=== PATIENT | female | born 1950 | race Caucasian/White ===

== ENCOUNTER 2023-02-05 19:07 | Outpatient (CLI) | payer MEDICARE, SELFPAY | END 2023-02-05 19:08 | disposition home or self-care (01) | PROVIDERS: PCP Emergency Medicine; Visit Provider Emergency Medicine | DX: Z00.00 Encounter for general adult medical examination without abnormal findings (principal); I10 Essential (primary) hypertension; E78.5 Hyperlipidemia, unspecified; D50.9 Iron deficiency anemia, unspecified | CPT/HCPCS: 80053; 82728 ==

== ENCOUNTER 2023-05-08 14:23 | Outpatient (CLI) | payer MEDICARE, SELFPAY | END 2023-05-08 14:24 | disposition home or self-care (01) | LOC: NFLDREF 05-10 10:06 | PROVIDERS: PCP Emergency Medicine; Referring Provider Emergency Medicine; Visit Provider Emergency Medicine | DX: Z00.00 Encounter for general adult medical examination without abnormal findings (principal); E11.9 Type 2 diabetes mellitus without complications; M85.9 Disorder of bone density and structure, unspecified; D50.9 Iron deficiency anemia, unspecified; E78.2 Mixed hyperlipidemia; I10 Essential (primary) hypertension | CPT/HCPCS: 80061; 82043; 82570; 82728 ==

== ENCOUNTER 2023-07-02 12:33 | Outpatient (CLI) | payer MEDICARE, SELFPAY ==
--- NOTE | 2023-07-02 13:00 | CRLHL7_ITS ---
For Patients: As a result of the Century Cures Act, medical imaging exams and procedure reports are released immediately into your electronic medical record. You may view this report before your referring provider. If you have questions, please contact your health care provider. DXA BONE MINERAL DENSITY STUDY Reason for exam: Low bone density femoral neck 2009. Current height (in): 64. Weight (lb): 145. Menopause age: 41. Ethnicity: White. 1. Have you had a previous hip or vertebral fracture? Yes. 2. Have you had any fractures during your adult life which did not result from significant trauma (e.g., auto accident)? Yes. 3. Did either of your parents have a hip fracture? Yes. 4. Do you smoke? No. 5. Have you ever taken Glucocorticoids? No. 6. Do you have rheumatoid arthritis? Yes. 7. Do you have secondary osteoporosis? No. 8. Do you drink 3 or more alcoholic drinks per day? No. 9. Are you being treated for osteoporosis? No. 10. Have you ever taken any of the following medications: Actonel, Evista, Fosamax, Miacalcin, Reclast, Boniva, Forteo, HRT (i.e., estrogen/hormone therapy), Protelos, Prolia, Vitamin D, Calcium, other ??? please specify. ANSWER: Yes, vitamin D and calcium. 11. Do you have any of the following medical conditions: Anorexia or bulimia, asthma or emphysema, end stage renal disease, hyperparathyroidism, any seizure disorders, cancer, inflammatory bowel diseases, hysterectomy, other ??? please specify. ANSWER: Yes, hysterectomy. 12. What was your maximum height (inches)? 64. 13. Do you perform weight bearing exercise regularly? No. 14. Do you regularly consume dairy products? No. 15. Do you drink caffeinated beverages? Yes. If female: 16. At what age did your period start? 16. 17. Are you premenopausal? No. 18. How many full-term pregnancies have you had? 3. 19. Have you ever missed your period for more than 6 months in a row (not including or menopause)? No. TECHNIQUE: Bone mineral density study was performed using the [employer]. FINDINGS: The results of the study expressed as bone mineral density (BMD) are as follows: Lumbar spine L3 to L4: BMD: 1.069 g/cm2. T-score: -0.3. Z-score: 2.1 Neck Left: BMD: 0.576 g/cm2. T-score: -2.5. Z-score: -0.5 Total Left: BMD: 0.789 g/cm2. T-score: -1.3. Z-score: 0.4 IMPRESSION: Osteoporosis. Dimas Loaiza M.D. Diagnostic Radiologist [email or web address] REJI/lucian del vallej/Dictated by: Dimas Loaiza MD @ 07/03/2023 6:16:00 AM (Electronically Signed)
== END 2023-07-02 12:34 | disposition home or self-care (01) ==
LOC: RAD 12:34
PROVIDERS: PCP Emergency Medicine; Visit Provider Emergency Medicine
DX: M85.9 Disorder of bone density and structure, unspecified (principal); M81.0 Age-related osteoporosis without current pathological fracture
CPT/HCPCS: 77080

== ENCOUNTER 2023-08-29 16:07 | Outpatient (CLI) | payer MEDICARE, SELFPAY | END 2023-08-29 16:08 | disposition home or self-care (01) | PROVIDERS: PCP Emergency Medicine; Visit Provider Emergency Medicine | DX: E78.5 Hyperlipidemia, unspecified (principal); I10 Essential (primary) hypertension; E11.9 Type 2 diabetes mellitus without complications; D50.9 Iron deficiency anemia, unspecified; M81.0 Age-related osteoporosis without current pathological fracture | CPT/HCPCS: 80053; 82306; 82728; 84100 ==

== ENCOUNTER 2024-09-11 07:50 | Day surgery (SDC) | payer MEDICARE, SELFPAY ==
[2024-09-11] VITALS (15 sets, daily range): BP systolic 130–228; BP diastolic 57–101; PULSE 68–83; RESP 11–20; TEMP 36.2–36.7; O2SAT 94–100; BMI 25.0
--- OUTSIDE RECORDS SUMMARY | 2024-09-11 07:55 | XMS_ITS | Encounter Summary ---
Author Organization [facility] Address [address] [place] [address] Care Team Providers Care Certified Master Locksmith Name Role Phone Doris Petit MD Primary Care Provider Unav ailable Doris Petti MD Unavailable UnavailRosalva Monroy PA-C Unavailable +[phone] Doris Petit MD Unavailable Unavailabl Rosalva Kimball PA-C Unavailable + Rosalva Doherty PA-C Primary Care Provid er + Edwige Chcako MD Primary Care Provider + Edwige Chacko MD Unavailable + 03 Rosalva Doherty PA-C Unavailable + Edwige Chacko MD Unavailable + 03 Rosalva oDherty PA-C Unavailable + Rosalva Doherty PA-C Primary Care Provid er Mary Laughlin PA-C Primary Care Pro vider Homa Marcum MD Unavailable [phone] Rosavla Doherty PA-C Unavailable + Rosalva Doherty PA-C Primary Care Provid er Homa Marcum MD Unavailable Rosalva Doherty PA-C Unavailable [phone] Encounter Details Date Type Department Care Team (Late st Contact Info) Description 06/15/2011 MyC Medical Advice [facility] [address] [place] [address] [phone] Od[facility] Social History Tobacco Use Types Packs/Day Years Used Date Smoking Tobacco: Never Alcohol Use Standard Drinks/Week Comments No 0 (1 standard drink = 0.6 oz pur e alcohol) Comments No Sex and Gender Information Value Date Recorded Sex Assigned at Female 01/14/2019 3:50 PM CDT 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 Gender Identity Female 01/14/2019 3:50 PM CDT Sexual Orientation Not on file documented as of this encounter Plan of Treatment Not on file documented as of this encounter Visit Diagnoses Not on filedocumented in this encounter Care Teams Certified Master Locksmith Relationship Specialty Start Date End Date Doris Petit MD PCP - General 11/23/05 02/14/20 Rosalva Doherty PA-C [address] [place] [address] PCP - General Physician Extract Puller 02/15/20 10/18/20 Edwige Chacko MD [address] [place] [address] PCP - General Family Medicine 10/19/20 06/15/21 Rosalva Doherty PA-C [address] [place] [address] PCP - General Family Medicine 06/16/21 11/22/21 Mary Laughlin PA-C [address], [address] [place] [address] PCP - General Family Medicine 11/23/21 11/12/22 Rosalva Doherty PA-C [address], [address] [place] [address] PCP - General Family Medicine 11/13/22 Doris Petit MD NO INFO AVAILABLE 03/07/23 Assigned PCP 05/15/12 11/07/19 Rosalva Doherty PA-C [address], [address] [place] [address], [place] [address] Assigned PCP 11/08/19 12/05/19 Doris Petit MD NO INFO AVAILABLE 03/07/23 Assigned PCP 12/06/19 01/02/20 Rosalva Doherty PA-C [address], [address] [place] [address] Assigned PCP 01/03/20 10/22/20 Edwige Chacko MD [address], [address] [place] [address] Assigned PCP 10/23/20 10/30/20 Rosalva Doherty PA-C [address], [address] [place] [address] Assigned PCP 10/31/20 02/23/21 Edwige Chacko MD [address], [address] [place] [address] Assigned PCP 02/24/21 04/01/21 Rosalva Doherty PA-C [address], [address] [place] [address] Assigned PCP 04/02/21 03/02/22 Homa Marcum MD [address] [place] [address] Assigned PCP 03/03/22 03/23/22 Rosalva Doherty PA-C [address], [address] [place] [address] Assigned PCP 03/24/22 03/01/23 Homa Marcum MD [address] [place] [address] Assigned PCP 03/02/23 05/17/23 Rosalva Doherty PA-C [address], [address] [place] [address] Assigned PCP 05/18/23 documented as of this encounter
--- OUTSIDE RECORDS SUMMARY | 2024-09-11 07:55 | XMS_ITS | Encounter Summary ---
Author Organization [facility] Address [address] [place] [address] Care Team Providers Care Airline Customer Service Agent Name Role Phone Edwige Chacko MD Primary Care Provider [phone] Rosalva Doherty PA-C Unavailable [phone] Rosalva Doherty PA-C Primary Care Provid er Mary Laughlin PA-C Primary Care Pro vider Homa Marcum MD Unavailable [phone] Rosalva Doherty PA-C Unavailable + [phone] Rosalva Doherty PA-C Primary Care Provid er Homa Marcum MD Unavailable [phone] Rosalva Doherty PA-C Unavailable + [phone] Encounter Details Date Type Department Care Team (Late st Contact Info) Description 04/18/2021 MyC Medical Advice [facility] [address] [place] [address] [address] [place] [address] Rosalva Doherty PA-C [address] [address] Social History Tobacco Use Types Packs/Day Years Used Date Smoking Tobacco: Never Smokeless Tobacco: Never Alcohol Use Standard Drinks/Week Comments No 0 (1 standard drink = 0.6 oz pur e alcohol) Overall Financial Resource Strain (CARDIA) Answe r Date Recorded How hard is it for you to pa y for the very basics like food, housing, medical care, and heating? Not hard at all 03/31/2020 PHQ-2 Answer Date Recorded PHQ-2 Score 0 10/21/2020 Hunger Vital Sign Answer Date Recorded Within the past 12 months, y ou worried that your food would run out before you got the money to buy more. Never true 03/31/20 20 Within the past 12 months, t he food you bought just didn't last and you didn't have money to get more. Never true 03/31/2020 PRAPARE - Transportation Answer Date Re corded In the past 12 months, has l ack of transportation kept you from medical appointments or from getting medications? No 03/13 In the past 12 months, has l ack of transportation kept you from meetings, work, or from getting things needed for daily living? 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 No / Unsure 04/13/2021 1:21 PM CDT documented as of this encounter Plan of Treatment Not on file documented as of this encounter Visit Diagnoses Not on filedocumented in this encounter Care Teams Airline Customer Service Agent Relationship Specialty Start Date End Date Edwige Chacko MD [address] [id number] PCP - General Family Medicine 10/19/20 06/15/21 Rosalva Doherty PA-C [address] [address] PCP - General Family Medicine 06/16/21 11/22/21 Mary Laughlin PA-C [address], [address] [place] [address] PCP - General Family Medicine 11/23/21 11/12/22 oRsalva Doherty PA-C [address], [address] [place] [address] PCP - General Family Medicine 11/13/22 Rosalva Doherty PA-C [address], [address] [place] [address] Assigned PCP 04/02/21 03/02/22 Homa Marcum MD [address] [place] [address] Assigned PCP 03/03/22 03/23/22 Rosalva Doherty PA-C [address], [address] [place] [address] Assigned PCP 03/24/22 03/01/23 Homa Marcum MD [address] [place] [address] Assigned PCP 03/02/23 05/17/23 Rosalva Doherty PA-C [address], [address] [place] [address] Assigned PCP 05/18/23 documented as of this encounter
--- OUTSIDE RECORDS SUMMARY | 2024-09-11 07:56 | XMS_ITS | Encounter Summary ---
Author Organization [facility] Address [address] [place] [address] Care Team Providers Care Conservation Policy Analyst Name Role Phone Doris Petit MD Primary Care Provider Unav ailable Doris Petit MD Unavailable UnavailRosalva Monroy PA-C Unavailable [phone] Doris Petit MD Unavailable Unavailabl Rosalva Kimball PA-C Unavailable + Rosalva Doherty PA-C Primary Care Provid er + Edwige Chacko MD Primary Care Provider + Edwige Chacko MD Unavailable + [phone] Rsoalva Doherty PA-C Unavailable + Edwige Chacko MD Unavailable + 03 Rosalva Doherty PA-C Unavailable + Rosalva Doherty PA-C Primary Care Provid er Mary Laughlin PA-C Primary Care Pro vider Homa Marcum MD Unavailable [phone] Rosalva Doherty PA-C Unavailable + Rosalva Doherty PA-C Primary Care Provid er Homa Marcum MD Unavailable [phone] Rosalav Doherty PA-C Unavailable + [phone] Encounter Details Date Type Department Care Team (Late st Contact Info) Description 03/02/2016 Orders Only [facility] [address] [place] [address] Lamont Blanchard MD [facility] [address] [place] [address] Pre-operative laboratory examination (Primary Dx) Social History Tobacco Use Types Packs/Day Years Used Date Smoking Tobacco: Never Smokeless Tobacco: Never Alcohol Use Standard Drinks/Week Comments No 0 (1 standard drink = 0.6 oz pur e alcohol) Comments No Sex and Gender Information Value Date Recorded Sex Assigned at Female 01/14/2019 3:50 PM CDT Legal Sex Female 2:59 AM PROCESS COORDINATOR Gender Identity Female 01/14/2019 3:50 PM CDT Sexual Orientation Not on file documented as of this encounter Plan of Treatment Not on file documented as of this encounter Results * Methicillin Resistant Staph Aureus PCR (03/02/2016 4:00 PM CDT) [facility]Sens S. aureus [facility] Negative MRSA Negative: SA Negative MRSA and Staphylococcus aureus target DNA not detected, presumed negative for MRSA and SA colonization or the number of bacteria present may be below the limit of detection for the assay. FDA approved assay performed using [employer] GeneXpert(R) real-time PCR. [facility]G [facility] 03/02/2016 4:00 PM CDT 03/02/2016 4:18 PM CDT us Lamont Blanchard MD LAB - MICRO GENERAL ORDERABLES Final Result [facility] [address] [place], [place] [address] [address] [place] [address], [facility] [phone] documented in this encounter Visit Diagnoses Diagnosis Pre-operative laboratory examination- Primary Pre-procedural laboratory examination documented in this encounter Care Teams Conservation Policy Analyst Relationship Specialty Start Date End Date Doris Petit MD PCP - General 11/23/05 02/14/20 Rosalva Doherty PA-C [address], [address] [place] [address] PCP - General Physician Wildlife Control Operator 02/15/20 10/18/20 Edwige Chacko MD [address], [address] [address] PCP - General Family Medicine 10/19/20 06/15/21 Rosalva Doherty PA-C [address], [address] [address] PCP - General Family Medicine 06/16/21 11/22/21 Mary Laughlin PA-C [address], [address] [address] PCP - General Family Medicine 11/23/21 11/12/22 Rosalva Doherty PA-C [address], [address] [address] PCP - General Family Medicine 11/13/22 Doris Petit MD NO INFO AVAILABLE 03/07/23 Assigned PCP 05/15/12 11/07/19 Rosalva Doherty PA-C [address], [address] [place] [address] Assigned PCP 11/08/19 12/05/19 Doris Petit MD NO INFO AVAILABLE 03/07/23 Assigned PCP 12/06/19 01/02/20 Rosalva Doherty PA-C [address], [address] [place] [address] Assigned PCP 01/03/20 10/22/20 Edwige Chacko MD [address], [address] [place] [address] Assigned PCP 10/23/20 10/30/20 Rosalva Doherty PA-C [address], [address] [place] [address] Assigned PCP 10/31/20 02/23/21 Edwige Chacko MD [address], [address] [place] [address] Assigned PCP 02/24/21 04/01/21 Rosalva Doherty PA-C [address], [address] [place] [address] Assigned PCP 04/02/21 03/02/22 Homa Marcum MD [address] [place] [address] Assigned PCP 03/03/22 03/23/22 Rosalva Doherty PA-C [address], [address] [place] [address] Assigned PCP 03/24/22 03/01/23 Homa Marcum MD [address] [place] [address] Assigned PCP 03/02/23 05/17/23 Rosalva Doherty PA-C [address], [facility] [address] [place] [address] Assigned PCP 05/18/23 documented as of this encounter
--- OUTSIDE RECORDS SUMMARY | 2024-09-11 07:56 | XMS_ITS | Encounter Summary ---
Author Organization [facility] Address [address] [place] [address] Care Team Providers Care Fire Lieutenant Marine Name Role Phone Rosalva Doherty PA-C Unavailable +[phone] Rosalva Doherty PA-C Primary Care Provid er Mary Laughlin PA-C Primary Care Pro vider Homa Marcum MD Unavailable +[phone] Rosalva Doherty PA-C Unavailable + [phone] Rosalva Doherty PA-C Primary Care Provid er Homa Marcum MD Unavailable +[phone] Rosalva Doherty PA-C Unavailable + [phone] Encounter Details Date Type Department Care Team (Late st Contact Info) Description 09/04/2021 MyC Medical Advice [facility] [address] [place] [address] [place] [address] Rosalva Doherty PA-C [address] [facility] [address] [place], [place] [id number] Social History Tobacco Use Types Packs/Day Years [...] PM CDT Legal Sex Female 2:59 AM FOOD SERVICES MANAGER Gender Identity Female 01/14/2019 3:50 PM CDT Sexual Orientation Not on file COVID-19 Exposure Response Date Recorded In the last month, have you been in contact with someone who was confirmed or suspected to have Coronavirus / COVID-19? No / Unsure 08/31/2021 2:35 PM FOOD SERVICES MANAGER documented as of this encounter Plan of Treatment Not on file documented as of this encounter Visit Diagnoses Not on filedocumented in this encounter Care Teams Fire Lieutenant Marine Relationship Specialty Start Date End Date Rosalva Doherty PA-C [address], [address] [place] [address] PCP - General Family Medicine 06/16/21 11/22/21 Mary Laughlin PA-C [address], [address] [place] [address] PCP - General Family Medicine 11/23/21 11/12/22 Rosalva Doherty PA-C [address], [address] [place] [address] PCP - General Family Medicine 11/13/22 Rosalva Doherty PA-C [address], [address] [place] [address] Assigned PCP 04/02/21 03/02/22 Homa Marcum MD [address] [place] [address] Assigned PCP 03/03/22 03/23/22 Rosalva Doherty PA-C [address], [address] [place] [address] Assigned PCP 03/24/22 03/01/23 Homa Marcum MD [address] [place] [address] Assigned PCP 03/02/23 05/17/23 Rosalva Doherty PA-C [address], [address] [place] [address] Assigned PCP 05/18/23 documented as of this encounter
--- OUTSIDE RECORDS SUMMARY | 2024-09-11 07:56 | XMS_ITS | Referral Summary ---
Author Organization [facility] Address [address] [place] [address] Care Team Providers Care Director Teen Post Name Role Phone Rosalva Doherty PA-C Primary Care Provid er Rosalva Doherty PA-C Unavailable [phone] Allergies Active Allergy Reactions Criticality Noted Date Comments No Known Drug Allergy 12/22/1999 Medications amphetamine-dextr oamphetamine (ADDERALL XR) 20 MG per capsule Take 20 mg by mouth daily Active amphetamine-dextr oamphetamine (ADDERALL) 20 MG per tablet Take 40 mg by mouth daily Active RESTASIS 0.05 % ophthalmic emulsion Place 2 drops into both eyes every morning 0 Active Therapeutic Multivit/Mineral tabletIndications :Iron deficiency anemia, unspecified iron deficiency anemia type Take 1 tablet by mouth daily 0 Active blood glucose monitoring (ACCU-CHEK COMPACT CARE KIT) meter device kitIndications:Ty pe 2 diabetes mellitus without complication, without long-term current use of insulin (H) Use to test blood sugars 1 times daily. 1 kit 0 Active blood glucose monitoring (SOFTCLIX) lancetsIndication s:Type 2 diabetes mellitus without complication, without long-term current use of insulin (H) Use to test blood sugar 1 times daily. 100 each 11 0 Active alcohol swab prep padsIndications:T ype 2 diabetes mellitus without complication, without long-term current use of insulin (H) Use to swab area of injection/dmitriy ce as directed. 100 each 3 0 Active ACCU-CHEK GUIDE test strip USE TO TEST BLOOD SUGAR ONE TIME DAILY OR DIRECTED 0 Active calcium carbonate (OS-WAN) 500 MG tablet Take 1 tablet by mouth daily Active omeprazole (PRILOSEC) [address] capsule Take 20 mg by mouth daily Active aspirin (ASA) 81 MG EC tabletIndications :Type 2 diabetes mellitus without complication, without long-term current use of insulin (H) Take 1 tablet (81 mg) by mouth daily 1 Active atorvastatin (LIPITOR) 10 MG tabletIndications :Type 2 diabetes mellitus without complication, without long-term current use of insulin (H) Take 1 tablet (10 mg) by mouth daily 90 tablet 3 2 Active metoprolol succinate ER (TOPROL XL) 50 MG 24 hr tabletIndications :Essential hypertension, benign,Benign essential hypertension Take 1 tablet (50 mg) by mouth daily 90 tablet 1 2 Active lisinopril (ZESTRIL) 20 MG tabletIndications :Essential hypertension, benign,Benign essential hypertension Take 1 tablet (20 mg) by mouth daily 90 tablet 1 2 Active metFORMIN (GLUCOPHAGE XR) 500 MG 24 hr tabletIndications :Type 2 diabetes mellitus without complication, without long-term current use of insulin (H) Take 2 tablets (1,000 mg) by mouth 2 times daily (with meals) 180 tablet 1 2 Active Active Problems Patient Care Coordination No te Formatting of this note migh t be different from the original. [email or web address] Problem Noted Date Diagnosed Date Osteopenia of multiple sites 09/01/2021 Overview (09/01/2021): 2009 Type 2 diabetes mellitus wit hout complication, without long-term current use of insulin 03/31/2020 S/P total hip arthroplasty 06/21/2019 Left knee pain, unspecified chronicity 6 Presence of right artificial knee joint 01/23/20 16 Degenerative arthritis of knee 01/19/2016 Hypersomnolence disorder - [place] Sleep managed 06/13 Hyperlipidemia with target LDL less than 130 Overview (06/13/2015): Diagnosis updated by automated process. Provider to review and confirm. Essential hypertension, benign 03/07/2012 ACP (advance care planning) 09/07/2011 Overview (01/04/2015): Advance Care Planning 01/04/2015: ACP Review and Resources Provided: Reviewed chart for advance care plan. Emily Harrell has no plan or code status on file. Discussed available resources and provided with information. Confirmed code status reflects current choices pending further ACP discussions. Confirmed/documented legally designated decision maker(s). Added by Sherry Gill Tear film insufficiency 11/06/2006 Overview (05/12/2015): Problem list name updated by automated process. Provider to review Resolved Problems Problem Noted Date Diagnosed Date Resolved Date Closed right hip fracture, initial encounter 9 08/19/2019 Aftercare following left kne e joint replacement surgery 04/10/2016 11/10/2021 Acute pain of left knee 01/23/201602/10 Aftercare following right kn ee joint replacement surgery 01/23/2016 03/09/2016 Abnormal glucose 02/08/2014 11/10/2021 Overview (05/13/2015): Problem list name updated by automated process. Provider to review Pure hypercholesterolemia 10/14/2012 Health Nursing Home 10/09/2012 01/27/2024 Overview (04/17/2013): State Tier Level: Tier 1 Status: n/a Floor Inspector: n/a See Letters for [facility] Care Plan Herpes zoster 04/15/2007 03/09/2016 Overview (05/12/2015): Problem list name updated by automated process. Provider to review Pain in joint, ankle and foot 11/06/2006 10/14/2012 Immunizations Name Administration Dates Next Due Influenza Vaccine 65+ (Fluzone HD) 04/26/2022, Influenza Vaccine >6 months,quad, PF 05/21/2021, 07/24/2019,06/12/2018 Pneumo Conj 13-V (2010&after) 02/29/2016 Pneumococcal 23 valent 12/13/2017 TDAP (Adacel,Boostrix) 04/24/2021 TDAP Vaccine (Boostrix) 10/12/2010 Td (Adult), Adsorbed 08/02/2004,07/13/2002,12/21 Tdap (Adult) Unspecified Formulation 04/24/2021 Zoster recombinant adjuvanted (SHINGRIX) 020,04/01/2020 Zoster vaccine, live 02/08/2014 Social History Tobacco Use Types Packs/Day Years Used Date Smoking Tobacco: Never Smokeless Tobacco: Never Tobacco Cessation:Counseling Given: Not Answered Alcohol Use Standard Drinks/Week Comments No 0 (1 standard drink = 0.6 oz pur e alcohol) Overall Financial Resource Strain (CARDIA) Answe r Date Recorded How hard is it for you to pa y for the very basics like food, housing, medical care, and heating? Not hard at all 03/31/2020 PHQ-2 Answer Date Recorded PHQ-2 Score 0 11/15/2021 Hunger Vital Sign Answer Date Recorded Within [...] things needed for daily living? No 03/31/2020 Adolescent Education Answer Date Record ed Getting School Help Needed Not on file 05/26 Comments No Sex and Gender Information Value Date Recorded Sex Assigned at Female 01/14/2019 3:50 PM CDT Legal Sex Female 2:59 AM INTERMEDIATE PROJECT MANAGER Gender Identity Female 01/14/2019 3:50 PM CDT Sexual Orientation Not on file Last Filed Vital Signs Vital Sign Reading Time Taken Comments Blood Pressure 160/100 06/28/2022 11:35 AM INTERMEDIATE PROJECT MANAGER Pulse 98 06/28/2022 11:35 AM INTERMEDIATE PROJECT MANAGER Temperature 36.7 C (98.1 F) 06/28/2022 11:35 AM INTERMEDIATE PROJECT MANAGER Respiratory Rate 18 03/31/2020 1:58 PM CDT Oxygen Saturation 98% 06/28/2022 11:35 AM INTERMEDIATE PROJECT MANAGER Inhaled Oxygen Concentration - - Weight 67.7 kg (149 lb 3.2 oz) 06/28/2022 11:35 AM INTERMEDIATE PROJECT MANAGER Height 163.2 cm (5' 4.25) 06/28/2022 11:[address] Body Mass Index 25.41 06/28/2022 11:35 AM INTERMEDIATE PROJECT MANAGER Plan of Treatment Not on file Medical Devices Implanted Type Area Molecular Spectroscopist Device Identifier Shelf Expiration Date Model / Serial / Lot 6.5mm Low Profile Hex Scr 25mm Implanted:Qty: 1 on 09/04/2019 by Lorenzo Manuel MD at [facility] Metallic Hardware/An chor Right: Hip [employer] 04/05/2024 7030-652 5 / / [id number] 6.5mm Low Profile Hex Scr 25mm Implanted:Qty: 1 on 09/04/2019 by Lorenzo Manuel MD at [facility] Metallic Hardware/An chor Right: Hip [employer] 10/31/2023 7030-652 5 / / [id number] Trident Ii Tritanium Clusterhole Acetabular Shell, 52mm, E Implanted:Qty: 1 on 09/04/2019 by Lorenzo Manuel MD at [facility] Total Joint Component/I nsert Right: Hip [employer] [id number] 09/01/2023 702-04-5 2E / / [id number] Imp Insert Acet Strk Rstrtn Hip Adm X3 68t45ry 1236-2-848 Implanted:Qty: 1 on 09/04/2019 by Lorenzo Manuel MD at [facility] Total Joint Component/I nsert Right: Hip [employer] 05/28/2024 1236-2-8 48 / / [id number] Imp Head Femoral Strk Biolox Delta Ceramic 28mm 0mm Implanted:Qty: 1 on 09/04/2019 by Lorenzo Manuel MD at [facility] Total Joint Component/I nsert Right: Hip [employer] 04/27/2024 6570-0-1 28 / / [id number] Imp Insert Acet Strk Mdm Cocr Hip 0deg 42mm Sz E 626-00-42e Implanted:Qty: 1 on 09/04/2019 by Lorenzo Manuel MD at [facility] Total Joint Component/I nsert Right: Hip [employer] 05/06/2024 626-00-4 2E / / [id number] Bone Cement Simplex Full Dose 6191-1-001 Implanted:Qty: 2 on 01/19/2016 by Lamont Blanchard MD at [facility] [employer] 06/11/2018 6191-1-0 01 / / [id number] Imp Insert Tibial Howm Tri 3x09mm 5530-G-309 Implanted:Qty: 1 on 01/19/2016 by Lmaont Blanchard MD at [facility] Right: Knee [employer] 04/10/2020 5530-G-3 09 / / [id number] Imp Baseplate Tibial Howm Tri 3 5520-B-300 Implanted:Qty: 1 on 01/19/2016 by Lamont Blanchard MD at [facility] Right: Knee [employer] 09/05/2020 5520-B-3 00 / / [id number] Imp Comp Fem Strk Triathln Cr Rt 4 5510-F-402 Implanted:Qty: 1 on 01/19/2016 by Lamont Blanchard MD at [facility] Right: Knee [employer] 11/22/2020 5510-F-4 02 / / [id number] Imp Comp Patella Strk Tri Sym X3 31x9mm 5550-G-319 Implanted:Qty: 1 on 01/19/2016 by Lamont Blanchard MD at [facility] Right: Knee [employer] 05/17/2020 5550-G-3 19 / / [id number] Imp Peg Distal Femoral Strk 5575-X-000 Implanted:Qty: 1 on 03/13/2016 by Lamont Blanchard MD at [facility] Left: Knee [employer] 12/25/2020 5575-X-0 00 / / [id number] Imp Insert Tibial Howm Tri Size 4 16mm 5532-G-416 Implanted:Qty: 1 on 03/13/2016 by Lamont Blanchard MD at [facility] Left: Knee [employer] 06/10/2018 5532-G-4 16 / / [id number] Bone Cement Simplex Full Dose 6191-1-001 Implanted:Qty: 2 on 03/13/2016 by Lamont Blanchard MD at [facility] Left: Knee [employer] 06/11/2018 6191-1-0 01 / / [id number] Imp Comp Fem Strk Triathln Ps Lt 5 5515-F-501 Implanted:Qty: 1 on 03/13/2016 by Lamont Blanchard MD at [facility] Left: Knee [employer] 01/31/2021 5515-F-5 01 / / [id number] Imp Comp Patella Strk Tri Sym X3 31x9mm 5550-G-319 Implanted:Qty: 1 on 03/13/2016 by Lamont Blanchard MD at [facility] Left: Knee [employer] 07/11/2020 5550-G-3 19 / / [id number] Imp Baseplate Tibial Howm Tri 4 5520-B-400 Implanted:Qty: 1 on 03/13/2016 by Lamont Blanchard MD at [facility] Left: Knee [employer] 11/14/2020 5520-B-4 00 / / [id number] [place] 127 Degree Neck Angle Hip Stem Size 5 Implanted:Qty: 1 on 06/21/2019 by Lorenzo Manuel MD at [facility] Right: Hip [employer] 07/22/2023 6721-053 5 / / [id number] Explanted Type Area Molecular Spectroscopist Device Identifier Shelf Expiration Date Model / Serial / Lot 6.5mm Low Profile Hex Scr 35mm Implanted:Qty: 1 on 06/21/2019 by Lorenzo Manuel MD at [facility] Explanted:Qty: 1 on 09/04/2019 by Lorenzo Manuel MD at [facility] Metallic Hardware/Anc hor Right: Hip [employer] 01/28/2024 8526-6865 / / [id number] Imp Liner Strk Trident X3 Poly 32mm 10deg Sz D 623-10-32d Implanted:Qty: 1 on 06/21/2019 by Lorenzo Manuel MD at [facility] Explanted:Qty: 1 on 09/04/2019 by Lorenzo Manuel MD at [facility] Total Joint Component/In sert Right: Hip [employer] 09/18/2022 623-10-32 D / / [id number] Imp Head Femoral Strk Biolox Delta Ceramic 32mm 0mm Implanted:Qty: 1 on 06/21/2019 by Lorenzo Manuel MD at [facility] Explanted:Qty: 1 on 09/04/2019 by Lorenzo Manuel MD at [facility] Total Joint Component/In sert Right: Hip [employer] 11/30/2019 6570-0-13 2 / / [id number] Imp Insert Tibial Howm Tri Size 4 13mm 5532-G-413 Implanted:Qty: 1 Explanted:Qty: 1 on 03/13/2016 by Lamont Blanchard MD at [facility] Left: Knee [employer] 01/01/2021 5532-G-41 3 / / [id number] Description:WRONG SIZE [employer] Acetabular Shell # 50mm-D Implanted:Qty: 1 on 06/21/2019 by Lorenzo Manuel MD at [facility] Explanted:Qty: 1 on 09/04/2019 by Lorenzo Manuel MD at [facility] Right: Hip [employer] 09/03/2023 702-04-50 D / / [id number] Procedures Procedure Name Priority Date/Time Associated Diagnosis Comments DIABETIC (DILATED) EYE EXAM Routine 06/26/2024 MA SCREENING BILATERAL W/ REI Routine 04/06/2024 HEMOGLOBIN A1C (BFP) Routine 06/28/2022 11:51 AM INTERMEDIATE PROJECT MANAGER Type 2 diabetes mellitus without complication, without long-term current use of insulin (H) COMPREHENSIVE METABOLIC PANEL (BFP) Routine 11/15/2021 11:46 AM CDT Type 2 diabetes mellitus without complication, without long-term current use of insulin (H) LIPID PANEL (BFP) Routine 11/15/2021 11: 45 AM CDT Type 2 diabetes mellitus without complication, without long-term current use of insulin (H) ALBUMIN RANDOM URINE QUANTITATIVE (BFP) Routine 11/15/2021 10:41 AM CDT Type 2 diabetes mellitus without complication, without long-term current use of insulin (H) COLONOSCOPY - HIM SCAN Routine 06/21/2021 ZZCL AFF FECAL BLOOD ASSAY Routine 12/26/2015 12:09 PM CDT Encounter for screening fecal occult blood testing HEPATITIS C ANTIBODY Routine 02/08/2014 11:19 AM CDT Routine gynecological examination ZZ DEXA INTERPRETATION, AXIAL Routine 11/21/2009 Absence of Menstruation from Last 3 Months or Most Recently Relevant to Health Maintenance Results * DIABETIC (DILATED) EYE EXAM (06/26/2024) us Patient Reported PROCEDURES Final Result * MA Screening Bilateral w/ Rei (04/06/2024) MAMMOGRAM Anatomical Region Laterality Modality Breast Bilateral Other Narrative 04/06/2024 [id number] [facility], [address] [place] [address] [place] : 1950 Req Phys: Yasemin Benz MD Patient name: EMILY HARRELL Charis Clinic: [facility] Dept No: [id number] MAMMOGRAM SCREENING REI BILATERAL Exam Date: 04/06/2024 EXAM: MAMMOGRAM SCREENING REI BILATERAL LOCATION: [facility] [place] DATE: 04/06/2024 INDICATION: Asymptomatic. Screening Mammogram. COMPARISON: 12/11/22, 05/10/21 and 12/22/2013. BREAST DENSITY: The breasts are heterogeneously dense, which may obscure small masses. FINDINGS: Tomosynthesis craniocaudal and mediolateral oblique views were obtained. There is no evidence for spiculated masses, architectural distortion, asymmetry or suspicious calcifications. IMPRESSION: No concerning mammographic findings. Recommend routine annual screening mammography. When performed, computer-aided detection was used in the interpretation of this study. ACR BI-RADS Category 1: Negative. A lay language report of this examination will be mailed to the patient. LIFETIME BREAST CANCER RISK ASSESSMENT SCORE: Lifetime risk of developing breast cancer is 5.4% calculated using the Greta Model and information provided by the patient at the time of screening. The average lifetime risk for developing breast cancer is 12.9% for women born in the [place]. For patients with a lifetime breast cancer risk assessment score of less than 20%, annual screening mammography is recommended. For patients with a lifetime risk of greater than 20%, annual screening mammography supplemented with annual Breast MRI is recommended. Patients in this category are encouraged to discuss this recommendation with their healthcare provider to determine if Breast MRI is appropriate and if so, to obtain a referral and confirm coverage with their health insurance. Recommendations are based on the [employer] Appropriateness Criteria. Patients with a BI-RADS category of 0 should follow the recommendations for further evaluation before considering supplemental screening. Dictated By: GAVI PRECIADO M.D. Password protected electronic signature by: RUBÉN Trans: SI Date Of Trans: 04/07/2024 9:45:00AM Date report approved and signed by interpreting physician: 04/07/2024 9:43:00AM Page 1 of 1 us Patient Reported IMG MAMMOGRAPHY ORDERABLES Sheila l Result * HEMOGLOBIN A1C (BFP) (06/28/2022 11:51 AM INTERMEDIATE PROJECT MANAGER) Hemoglobin A1C 6.2 4.0 - 7.0 % [facility] Blood 06/28/2022 11:5 1 AM INTERMEDIATE PROJECT MANAGER us Mary Laughlin PA-C LAB - NON-BEAKER BLOOD LABS Final Result [facility] [address] [place] [address] * (ABNORMAL) Comprehensive Metobolic Panel ([facility]) (11/15/2021 11:46 AM CDT) Carbon Dioxide 28.5 20 - 32 mmol/L [facility] Creatinine 0.91 0.60 - 1.30 mg/dL [facility] Glucose 113(A) 60 - 99 mg/dL [facility] Sodium 142.1 135 - 146 mmol/L [facility] Potassium 4.45 3.5 - 5.3 mmol/L [facility] Chloride 105.3 98 - 110 mmol/L [facility] Protein Total 6.5 6.1 - 8.1 g/dL [facility] Albumin 4.3 3.6 - 5.1 g/dL [facility] Alkaline Phosphatase 72 33 - 130 U/L [facility] ALT 22 0 - 32 U/L [facility] AST 16 0 - 35 U/L [facility] Bilirubin Total 0.3 0.2 - 1.2 mg/dL [facility] Urea Nitrogen 15 7 - 25 mg/dL [facility] Calcium 9.7 8.6 - 10.3 mg/dL [facility] BUN/Creatinine Ratio 16.5 6 - 22 [facility] Globulin Calculated 2.2 1.9 - 3.7 [facility] A/G Ratio 2.0 1 - 2.5 [facility] Blood 11/15/2021 11:4 6 AM CDT us Homa Marcum MD LAB - NON-BEAKER BLOOD LABS Final Result [facility] [address] [place] [address] [address] [place] [address] * Lipid Panel ([facility]) (11/15/2021 11:45 AM CDT) Cholesterol 163 0 - 199 mg/dL [facility] Triglycerides 88 0 - 149 mg/dL [facility] HDL Cholesterol 62 40 - 150 mg/dL [facility] LDL Cholesterol Direct 83 0 - 130 mg/dL [facility] Cholesterol/HDL Ratio 3 0 - 5 [facility] Blood 11/15/2021 11:4 5 AM CDT Homa Marcum MD LAB - NON-BEAKER BLOOD LABS Final Result Performing Organization Address [facility] Co de Phone Number [facility] [address] [place] [address] * ALBUMIN RANDOM URINE QUANTITATIVE ([facility]) (11/15/2021 10:41 AM CDT) Albumin mg/L 30 30 [facility] Creatinine Urine mg/dL 300 300 mg/dL [facility] Albumin Urine mg/g Cr <30 30 MG/G Creatinine [facility] Urine 11/15/2021 10:4 1 AM CDT Homa Marcum MD LAB - NON-BEAKER NON-BLOOD F inal Result Performing Organization Address [place] de Phone Number [facility] [address] [place] [address] * Colonoscopy - HIM Scan (06/21/2021) us Patient Reported PROCEDURES Final Result * FOB (Fecal Occult Blood) ([facility]) (12/26/2015 12:09 PM CDT) Occult Blood neg neg [facility] 12/26/2015 12:0 9 PM CDT Doris Petit MD LABORATORY Final Resul t Performing Organization Address [facility] de Phone Number [facility] [address] [place] [address] * Hepatits C antibody ([facility]) (02/08/2014 11:19 AM CDT) HCV Antibody NON-REACTI VE NON-REACTI VE [facility] SIGNAL TO CUT OFF - [facility] 0.05 <1.00 [facility] Blood specimen (specimen) 02/08/2014 11:19 AM CDT 02/09/2014 2:04 AM CDT Narrative Resulting Agency Comment Performing Organization Information: [facility] [address] [place] [address] Srinivasa Bustamante M.D. us Doris Petit MD LAB - BLOOD ORDERABLES Sheila brandi Result [facility] [address] [place] [address] * DEXA INTERPRETATION, AXIAL (11/21/2009) Anatomical Region Laterality Modality Other Narrative 11/21/2009 Bone Density Report Name: Claudia Harrell Sex: Female Ethnicity: White Age: 59 Date of : 1950 Indication: Referring Physician: Christie Petit Study: Bone densitometry was performed. Accession number: [id number] Bone Density: Region Exam Date BMD (g/cm2) T-Score Z-Score Classification AP Spine (L1-L4) 11/17/2009 0.976 -0.6 0.7 Normal Femoral Neck (Left) 11/17/2009 0.676 -1.6 -0.3 Osteopenic Total Hip (Left) 11/17/2009 0.841 -0.8 0.1 Normal World Health Organization criteria for BMD interpretation classify patients as Normal (T-score at or above -1.0), Osteopenic (T-score between -1.0 and -2.5), or Osteoporotic (T-score at or below -2.5). Previous Exams: Region Exam Date Age BMD (g/cm2) T-Score BMD Change vs. Baseline BMD Change vs. Previous AP Spine() 11/17/2009 59 0.976 -0.6 -9.2%* -9.2%* 08/02/2004 54 1.075 0.3 Total Hip(Left) 11/17/2009 59 0.841 -0.8 -9.1%* -9.1%* 08/02/2004 54 0.925 -0.1 * Indicates significant change Interpretation: BMD results consistent with moderate osteopenia RECOMMENDATIONS: TYPICAL RECOMMENDATIONS DAILY CALCIUM INTAKE OF 1500 MG DAILY VITAMIN D INTAKE OF 400-800 IU REGULAR WEIGHT BEARING EXERCISES CONSIDERATION OF PHARMACOLOGICAL INTERVENTION FOLLOW UP IN 1-2 YEARS Reported by: on 11/17/2009 3:50:00 PM. Doris Petit MD SPECIAL IMAGING STUDIES Fin al Result from Last 3 Months or Most Recently Relevant to Health Maintenance Advance Directives For more information, please contact: [phone] * Full Code (Latest Code Status on File) Date Activated Date Inactivated Comments 09/05/2019 10:15 AM 09/06/2019 1:29 PM Question Answer Comments Code status determined by: Discussion with patie nt/legal decision maker * Full Code Date Activated Date Inactivated Comments 06/21/2019 2:04 PM 06/25/2019 3:18 PM Question Answer Comments Code status determined by: AD/POLST (pat ient/legal decision maker unavailable) * Full Code Date Activated Date Inactivated Comments 06/20/2019 7:44 PM 06/21/2019 2:04 PM Question Answer Comments Code status determined by: Discussion with patie nt/legal decision maker * Full Code Date Activated Date Inactivated Comments 03/13/2016 5:30 PM 03/15/2016 4:37 PM * Full Code Date Activated Date Inactivated Comments 01/19/2016 2:09 PM 01/21/2016 6:49 PM Care Teams Director Teen Post Relationship Specialty Start Date End Date Rosalva Doherty PA-C [address], [address] [address] PCP - General Family Medicine 11/13/22 Rosalva Doherty PA-C [address], [place] [address] [place] [address] Assigned PCP 05/18/23
--- OUTSIDE RECORDS SUMMARY | 2024-09-11 07:56 | XMS_ITS | Encounter Summary ---
Author Organization [facility] Address [address] [place] [address] Care Team Providers Care House Superintendent Name Role Phone Edwige Chacko MD Primary Care Provider [phone] Rosalva Doherty PA-C Unavailable [phone] Rosalva Doherty PA-C Primary Care Provid er Mary Laughlin PA-C Primary Care Pro vider Homa Marcum MD Unavailable [phone] Rosalva Doherty PA-C Unavailable + [phone] Rosalva Doherty PA-C Primary Care Provid er Homa Marcum MD Unavailable [phone] Rosalva Doherty PA-C Unavailable + [phone] Encounter Details Date Type Department Care Team (Late st Contact Info) Description 04/18/2021 MyC Medical Advice [facility] [address] [place] [address] [address] [place] [address] Rosalva Doherty PA-C [address] [address] Social History Tobacco Use Types [...] PM CDT Legal Sex Female 2:59 AM WIRE CHARGER Gender Identity Female 01/14/2019 3:50 PM CDT [...] on filedocumented in this encounter Care Teams House Superintendent Relationship Specialty Start Date End Date Edwige Chacko MD [address] [id number] PCP - General Family Medicine 10/19/20 06/15/21 Rosalva Doherty PA-C [address] [address] PCP - General Family Medicine 06/16/21 11/22/21 Mary Laughlin PA-C [address], [address] [place] [address] PCP - General Family Medicine 11/23/21 11/12/22 Rosalva Doherty PA-C [address], [address] [place] [address] PCP - General Family Medicine 11/13/22 Rosalva Doherty PA-C [address], [address] [place] [address] Assigned PCP 04/02/21 03/02/22 Homa Marcum MD [address] [place] [address] Assigned PCP 03/03/22 03/23/22 Rosalva Doherty PA-C [address], [address] [place] [address] Assigned PCP 03/24/22 03/01/23 Homa Marcum MD [address] [place] [address] Assigned PCP 03/02/23 05/17/23 Rosalva Doherty PA-C [address], [address] [place] [address] Assigned PCP 05/18/23 documented as of this encounter
--- OUTSIDE RECORDS SUMMARY | 2024-09-11 07:56 | XMS_ITS | Encounter Summary ---
Author Organization [facility] Address [address] [place] [address] Care Team Providers Care Aircraft Designer Name Role Phone Edwige Chacko MD Primary Care Provider [phone] Rosalva Doherty PA-C Unavailable + [phone] Edwige Chacko MD Unavailable [phone] Rosalva Doherty PA-C Unavailable + [phone] Rosalva Doherty PA-C Primary Care Provid er Mary Laughlin PA-C Primary Care Pro vider Homa Marcum MD Unavailable [phone] Rosalva Doherty PA-C Unavailable + [phone] Rosalva Doherty PA-C Primary Care Provid er Homa Marcum MD Unavailable [phone] Rosalva Doherty PA-C Unavailable + [phone] Encounter Details Date Type Department Care Team (Late st Contact Info) Description 12/09/2020 MyC Medical Advice [facility] [address] [place] [address] [address] [place] [address] Ruba Chavez Social History Tobacco Use Types Packs/Day Years [...] PM CDT 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 Gender Identity Female 01/14/2019 3:50 PM CDT Sexual Orientation Not on file documented as of this encounter Plan of Treatment Not on file documented as of this encounter Visit Diagnoses Not on filedocumented in this encounter Care Teams Aircraft Designer Relationship Specialty Start Date End Date Edwige Chacko MD [address] [address] PCP - General Family Medicine 10/19/20 06/15/21 Rosalva Doherty PA-C [address] [address] PCP - General Family Medicine 06/16/21 11/22/21 Mary Laughlin PA-C [address], [address] [place] [address] PCP - General Family Medicine 11/23/21 11/12/22 Rosalva Doherty PA-C [address], [address] [address] PCP - General Family Medicine 11/13/22 Rosalva Doherty PA-C [address], [address] [place] [address] Assigned PCP 10/31/20 02/23/21 Edwige Chacko MD [address], [address] [address] Assigned PCP 02/24/21 04/01/21 Rosalva Doherty PA-C [address], [address] [address] Assigned PCP 04/02/21 03/02/22 Homa Marcum MD [address] [place] [address] Assigned PCP 03/03/22 03/23/22 Rosalva Doherty PA-C [address], [address] [address] Assigned PCP 03/24/22 03/01/23 Homa Marcum MD [address] [place] [address] Assigned PCP 03/02/23 05/17/23 Rosalva Doherty PA-C [address] , [facility] [address] [place] [address] Assigned PCP 05/18/23 documented as of this encounter
--- OUTSIDE RECORDS SUMMARY | 2024-09-11 07:56 | XMS_ITS | Clinical Summary ---
Author Organization [facility] Address [address] [place] [address] Care Team Providers Care Resident Services Supervisor Name Role Phone Rosalva Doherty PA-C Primary Care Provid er Rosalva Doherty PA-C Unavailable [phone] Allergies Active Allergy Reactions Criticality Noted Date [...] migh t be different from the original. 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 Gender Identity Female 01/14/2019 3:50 PM CDT Sexual Orientation Not on file Last Filed Vital Signs Vital Sign Reading Time Taken Comments Blood Pressure 160/100 06/28/2022 11:35 AM GEOGRAPHY PROFESSOR Pulse 98 06/28/2022 11:35 AM GEOGRAPHY PROFESSOR Temperature 36.7 C (98.1 F) 06/28/2022 11:35 AM GEOGRAPHY PROFESSOR Respiratory Rate 18 03/31/2020 1:58 PM CDT Oxygen Saturation 98% 06/28/2022 11:35 AM GEOGRAPHY PROFESSOR Inhaled Oxygen Concentration - - Weight 67.7 kg (149 lb 3.2 oz) 06/28/2022 11:35 AM GEOGRAPHY PROFESSOR Height 163.2 cm (5' 4.25) 06/28/2022 11:[address] Body Mass Index 25.41 06/28/2022 11:35 AM GEOGRAPHY PROFESSOR Plan of Treatment Health Maintenance Due Date Last Done Comments ANNUAL REVIEW OF HM ORDERS 1950 CT COLONOGRAPHY 1950 FLEX SIG 1950 sDNA (Cologuard) 1950 RSV VACCINE (1 - Risk 60-74 years 1-dose series) 2010 MEDICARE ANNUAL WELLNESS VISIT 2015 02/08/2014, 11/17/2009, 08/02/2004, Additional history exists FIT 12/25/2016 12/26/2015 MICROALBUMIN 08/17/2022 11/15/2021, 10/10, 10/12/2019, Additional history exists BMP 11/15/2022 11/15/2021, 06/12, 04/13/2021, Additional history exists DIABETIC FOOT EXAM 11/15/2022 11/15/2021, 0 11/15/2021, 10/21/2020, Additional history exists LIPID 11/15/2022 11/15/2021, 10/10, 10/12/2019, Additional history exists A1C 12/26/2022 06/28/2022, 04/0 01/2022, 10/21/2020, Additional history exists FALL RISK ASSESSMENT 06/28/2023 06/28/2022, 10/21/2020, 10/12/2019, Additional history exists COVID-19 Vaccine ( season) 2024 12/26/2020, 11/28/2020 INFLUENZA VACCINE (#1) 2024 , 04/26/2022, 05/21/2021, Additional history exists PHQ-2 (once per calendar year) 2024 11/15/2021, 10/21/2020, 10/12/2019, Additional history exists DEXA 11/21/2024 11/21/2009, 08/09/2004 MAMMO SCREENING 04/06/2025 04/06/2024, 09/2022, 05/10/2021, Additional history exists EYE EXAM 06/26/2025 06/26/2024, 08/2021, 08/12/2019 ADVANCE CARE PLANNING 10/21/2025 10/21/2020 , 01/04/2015, 12/23/2013, Additional history exists DTAP/TDAP/TD IMMUNIZATION (4 - Td or Tdap) 04/24/2031 04/24/2021, 04/24/2021, 10/12/2010, Additional history exists COLONOSCOPY 06/21/2031 06/21/2021 COLORECTAL CANCER SCREENING 06/21/2031 HEPATITIS C SCREENING Completed 02/08/2014 Pneumococcal Vaccine: 50+ Years Completed 12/13/2017, 02/29/2016 ZOSTER IMMUNIZATION Completed 07/18/2020, 04/01/2020, 02/08/2014 HPV IMMUNIZATION Aged Out No longer e ligible based on patient's age to complete this topic MENINGITIS IMMUNIZATION Aged Out No l onger eligible based on patient's age to complete this topic RSV MONOCLONAL ANTIBODY Aged Out No l onger eligible based on patient's age to complete this topic Medical Devices Implanted Type Area Wash House Supervisor Device Identifier Shelf Expiration Date Model / Serial / Lot 6.5mm Low Profile Hex Scr 25mm Implanted:Qty: 1 on 09/04/2019 by Lorenzo Manuel MD at [facility] Metallic Hardware/An chor Right: Hip [employer] 04/05/2024 7030-652 5 / / [id number] 6.5mm Low Profile Hex Scr 25mm Implanted:Qty: 1 on 09/04/2019 by Lorenzo Manuel MD at [facility] Metallic Hardware/An chor Right: Hip [employer] 10/31/2023 7030-652 5 / / [id number] Trident Ii Tritanium Clusterhole Acetabular Shell, 52mm, E Implanted:Qty: 1 on 09/04/2019 by Lorenzo Manuel MD at [facility] Total Joint Component/I nsert Right: Hip [employer] [id number] 09/01/2023 702-04-5 2E / / [id number] Imp Insert Acet Strk Rstrtn Hip Adm X3 [id number] 1236-2-848 Implanted:Qty: 1 on 09/04/2019 by Lorenzo Manuel MD at [facility] Total Joint Component/I nsert Right: Hip [employer] 05/28/2024 1236-2-8 48 / / [id number] Imp Head Femoral Strk Biolox Delta Ceramic 28mm 0mm Implanted:Qty: 1 on 09/04/2019 by Lorenzo Manuel MD at [facility] Total Joint Component/I nsert Right: Hip [employer] 04/27/2024 6570-0-1 28 / / [id number] Imp Insert Acet Strk Mdm Cocr Hip 0deg 42mm Sz E 626-00-42e Implanted:Qty: 1 on 09/04/2019 by Lorenzo Manuel MD at [facility] Total Joint Component/I nsert Right: Hip [employer] 05/06/2024 626-00-4 2E / / [id number] Bone Cement Simplex Full Dose 6191-1-001 Implanted:Qty: 2 on 01/19/2016 by Lamont Blanchard MD at [facility] [employer] 06/11/2018 6191-1-0 01 / / [id number] Imp Insert Tibial Howm Tri 3x09mm 5530-G-309 Implanted:Qty: 1 on 01/19/2016 by Lamont Blanchard MD at [facility] Right: Knee [employer] 04/10/2020 5530-G-3 09 / / [id number] Imp Baseplate Tibial Howm Tri 3 5520-B-300 Implanted:Qty: 1 on 01/19/2016 by Lamont Blanchard MD at [facility] Right: Knee [employer] 09/05/2020 5520-B-3 00 / / [id number] Imp Comp Fem Strk Triathln Cr Rt 4 5510-F-402 Implanted:Qty: 1 on 01/19/2016 by Lamont Blanchard MD at [facility] Right: Knee [employer] 11/22/2020 5510-F-4 02 / / [id number] Imp Comp Patella Strk Tri Sym X3 31x9mm 5550-G-319 Implanted:Qty: 1 on 01/19/2016 by Lamont Blanchard MD at [facility] Right: Knee [employer] 05/17/2020 5550-G-3 19 / / [id number] Imp Peg Distal Femoral Strk 5575-X-000 Implanted:Qty: 1 on 03/13/2016 by Lamont Blanchard MD at [facility] Left: Knee [employer] 12/25/2020 5575-X-0 00 / / [id number] Imp Insert Tibial Howm Tri Size 4 16mm 5532-G-416 Implanted:Qty: 1 on 03/13/2016 by Lamont Blanchard MD at [facility] Left: Knee [employer] 06/10/2018 5532-G-4 16 / / [id number] Bone Cement Simplex Full Dose 6191-1-001 Implanted:Qty: 2 on 03/13/2016 by Lamont Blanchard MD at [facility] Left: Knee [employer] 06/11/2018 6191-1-0 01 / / [id number] Imp Comp Fem Strk Triathln Ps Lt 5 5515-F-501 Implanted:Qty: 1 on 03/13/2016 by Lamont Blanchard MD at [facility] Left: Knee [employer] 01/31/2021 5515-F-5 01 / / [id number] Imp Comp Patella Strk Tri Sym X3 31x9mm 5550-G-319 Implanted:Qty: 1 on 03/13/2016 by Lamont Blanchard MD at [facility] Left: Knee [employer] 07/11/2020 5550-G-3 19 / / [id number] Imp Baseplate Tibial Howm Tri 4 5520-B-400 Implanted:Qty: 1 on 03/13/2016 by Lamont Blanchard MD at [facility] Left: Knee [employer] 11/14/2020 5520-B-4 00 / / [id number] [employer] 127 Degree Neck Angle Hip Stem Size 5 Implanted:Qty: 1 on 06/21/2019 by Lorenzo Mnauel MD at [facility] Right: Hip [employer] 07/22/2023 6721-053 5 / / [id number] Explanted Type Area Wash House Supervisor Device Identifier Shelf Expiration Date Model / Serial / Lot 6.5mm Low Profile Hex Scr 35mm Implanted:Qty: 1 on 06/21/2019 by Lorenzo Manuel MD at [facility] Explanted:Qty: 1 on 09/04/2019 by Lorenzo Manuel MD at [facility] Metallic Hardware/Anc hor Right: Hip [employer] 01/28/2024 1069-6407 / / [id number] Imp Liner Strk Trident X3 Poly 32mm 10deg Sz D 623--32d Implanted:Qty: 1 on 06/21/2019 by Lorenzo Manuel MD at [facility] Explanted:Qty: 1 on 09/04/2019 by Lorenzo Manuel MD at [facility] Total Joint Component/In sert Right: Hip [employer] 09/18/2022 623-10-32 D / / [id number] Imp Head Femoral Strk Biolox Delta Ceramic 32mm 0mm Implanted:Qty: 1 on 06/21/2019 by Lorenzo Manuel MD at [facility] Explanted:Qty: 1 on 09/04/2019 by Lorenzo Manuel MD at [facility] Total Joint Component/In sert Right: Hip [employer] 11/30/2019 6570-0-13 2 / / [id number] Imp Insert Tibial Howm Tri Size 4 13mm 5532-G-413 Implanted:Qty: 1 Explanted:Qty: 1 on 03/13/2016 by Lamont Blanchard MD at [facility] Left: Knee [employer] 01/01/2021 5532-G-41 3 / / [id number] Description:WRONG SIZE [employer] Acetabular Shell # 50mm-D Implanted:Qty: 1 on 06/21/2019 by Lorenzo Manuel MD at [facility] Explanted:Qty: 1 on 09/04/2019 by Lorenzo Manuel MD at [facility] Right: Hip [employer] 09/03/2023 702-04-50 D / / [id number] Procedures Procedure Name Priority Date/Time Associated Diagnosis Comments DIABETIC (DILATED) EYE EXAM Routine 06/26/2024 MA SCREENING BILATERAL W/ REI Routine 04/06/2024 HEMOGLOBIN A1C (BFP) Routine 06/28/2022 11:51 AM GEOGRAPHY PROFESSOR Type 2 diabetes mellitus without complication, without [...] 02/08/2014 11:19 AM CDT Routine gynecological examination [facility] DEXA INTERPRETATION, AXIAL Routine 11/21/2009 Absence of Menstruation from Last 3 Months or Most Recently Relevant to Health Maintenance Results * DIABETIC (DILATED) EYE EXAM (06/26/2024) us Patient Reported PROCEDURES Final Result * MA Screening Bilateral w/ Rei (04/06/2024) MAMMOGRAM Anatomical Region Laterality Modality Breast Bilateral Other Narrative 04/06/[address] [place] [address], [address] [place] [address] [place] : 1950 Req Phys: Yasemin Benz MD Patient name: EMILY HARRELL Clinic: [facility] Dept No: [id number] MAMMOGRAM SCREENING REI BILATERAL Exam Date: 04/06/2024 EXAM: MAMMOGRAM SCREENING REI BILATERAL LOCATION: [facility] [place] DATE: 04/06/2024 INDICATION: Asymptomatic. Screening Mammogram. COMPARISON: [...] health insurance. Recommendations are based on the [place] [employer] Appropriateness Criteria. Patients with a BI-RADS category of 0 should follow the recommendations for further evaluation before considering supplemental screening. Dictated By: GAVI PRECIADO M.D. Password protected electronic signature by: RUBÉN Trans: SI Date Of Trans: 04/07/2024 9:45:00AM Date report approved and signed by interpreting physician: 04/07/2024 9:43:00AM Page 1 of 1 Patient Reported IMG MAMMOGRAPHY ORDERABLES Sheila l Result * HEMOGLOBIN A1C (BFP) (06/28/2022 11:51 AM GEOGRAPHY PROFESSOR) Hemoglobin A1C 6.2 4.0 - 7.0 % [facility] Blood 06/28/2022 11:5 1 AM GEOGRAPHY PROFESSOR Mary Laughlin PA-C LAB - NON-BEAKER BLOOD LABS Final Result [facility] [address] [place] [id number] * (ABNORMAL) Comprehensive Metobolic Panel (BFP) (11/15/2021 [...] INTERNAL Blood 11/15/2021 11:4 6 AM CDT Homa Marcum MD LAB - [facility] BLOOD LABS Final Result Performing Organization Address [facility]/[place] Co de Phone Number [facility] [address] [place] [phone] * Lipid Panel ([facility]) (11/15/2021 11:45 AM CDT) Cholesterol 163 0 - 199 mg/dL [facility] Triglycerides 88 0 - 149 mg/dL [facility] HDL Cholesterol 62 40 - 150 mg/dL [facility] LDL Cholesterol Direct 83 0 - 130 mg/dL [facility] Cholesterol/HDL Ratio 3 0 - 5 [facility] Blood 11/15/2021 11:4 5 AM CDT Homa Marcum MD [facility] Final Result Performing Organization Address City/[facility]/ZIP Co de Phone Number [facility] [address] [place] [address] [place] [phone] * ALBUMIN RANDOM URINE QUANTITATIVE ([facility]) (11/15/2021 10:41 AM CDT) Albumin mg/L 30 30 [facility] Creatinine Urine mg/dL 300 300 mg/dL [facility] Albumin Urine mg/g Cr <30 30 MG/G Creatinine [facility] Urine 11/15/2021 10:4 1 AM CDT Homa Marcum MD LAB - NON-BEAKER NON-BLOOD F inal Result Performing Organization Address [facility]/ZIP Co de Phone Number [facility] INTERNAL [address] * Colonoscopy - HIM Scan (06/21/2021) us Patient Reported PROCEDURES Final Result * FOB (Fecal Occult Blood) (BFP) (12/26/2015 12:09 PM CDT) Occult Blood neg neg [facility] 12/26/2015 12:0 9 PM CDT Doris Petit MD LABORATORY Final Resul t Performing Organization Address [facility] de Phone Number [facility] INTERNAL [address] * Hepatits C antibody ([facility]) (02/08/2014 11:19 AM CDT) HCV Antibody NON-REACTI VE NON-REACTI VE [facility] SIGNAL TO CUT OFF - [facility] 0.05 <1.00 [facility] Blood specimen (specimen) 02/08/2014 11:19 AM CDT 02/09/2014 2:04 AM CDT Narrative Resulting Agency Comment Performing Organization Information: [facility] [address] [place] [address] Srinivasa Bustamante M.D. Doris Petit MD LAB - BLOOD ORDERABLES Sheila l Result Performing Organization Address City/[facility] Co de Phone Number [facility] [address] [place] [address] * DEXA INTERPRETATION, AXIAL (11/21/2009) Anatomical Region Laterality Modality Other Narrative 11/21/2009 Bone Density Report Name: Claudia Harrell Sex: Female Ethnicity: White Age: 59 Date of : 1950 Indication: Referring Physician: Christie Petit Study: Bone densitometry was performed. Accession number: [id number] Bone Density: Region Exam Date BMD (g/cm2) [...] Advance Directives For more information, please contact: [phone] * Full Code (Latest Code Status on [...] Comments Code status determined by: Discussion with bubba nt/legal decision maker * Full Code Date Activated Date Inactivated Comments 03/13/2016 5:30 PM 03/15/2016 4:37 PM * Full Code Date Activated Date Inactivated Comments 01/19/2016 2:09 PM 01/21/2016 6:49 PM Care Teams Resident Services Supervisor Relationship Specialty Start Date End Date Rosalva Doherty PA-C [address], [address] [place] [address] PCP - General Family Medicine 11/13/22 Rosalva Doherty PA-C [address], [address] [place] [address] Assigned PCP 05/18/23
--- OUTSIDE RECORDS SUMMARY | 2024-09-11 07:56 | XMS_ITS | Encounter Summary ---
Author Organization [facility] Address [address] [place] [address] Care Team Providers Care Assistant Professor Of Geography Name Role Phone Rosalva Doherty PA-C Unavailable + [phone] Rosalva Doherty PA-C Primary Care Provid er Mary Laughlin PA-C Primary Care Pro vider Homa Marucm MD Unavailable [phone] Rosalva Doherty PA-C Unavailable + [phone] Rosalva Doherty PA-C Primary Care Provid er Homa Marcum MD Unavailable [phone] Rosalva Doherty PA-C Unavailable + [phone] Encounter Details Date Type Department Care Team (Late st Contact Info) Description 10/02/2021 MyC Medical Advice [facility] [address] [place] [address] Ruba Chavez Social History Tobacco [...] PM CDT 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 Gender Identity Female 01/14/2019 3:50 PM CDT Sexual Orientation Not on file documented as of this encounter Plan of Treatment Not on file documented as of this encounter Visit Diagnoses Not on filedocumented in this encounter Care Teams Assistant Professor Of Geography Relationship Specialty Start Date End Date Rosalva Doherty PA-C [address] , [address] [address] PCP - General Family Medicine 06/16/21 11/22/21 Mary Laughlin PA-C [address], [address] [address] [place] [address] PCP - General Family Medicine 11/23/21 11/12/22 Rosalva Doherty PA-C [address], [address] [address] PCP - General Family Medicine 11/13/22 Rosalva Doherty PA-C [address], [facility] [address] [place] [address] Assigned PCP 04/02/21 03/02/22 Homa Marcum MD [address] [place] [address] Assigned PCP 03/03/22 03/23/22 Rosalva Doherty PA-C [address], [facility] [address] [place] [address] Assigned PCP 03/24/22 03/01/23 Homa Marcum MD [address] [facility] [place] [address] Assigned PCP 03/02/23 05/17/23 Rosalva Doherty PA-C [address] , [address] [place] [address] Assigned PCP 05/18/23 documented as of this encounter
--- OUTSIDE RECORDS SUMMARY | 2024-09-11 07:56 | XMS_ITS | Clinical Summary ---
Author Organization [facility] Address [place], [place] [address] Care Team Providers Care Furniture Painter Name Role Phone Doris Petit Primary Care Provider [phone] Allergies No known active allergies Medications dextroamphetamin e-amphetamine (ADDERALL) 20 mg tablet Take 40 mg by mouth once daily. Active dextroamphetamin e-amphetamine (ADDERALL XR) 20 mg Extended-Release capsule Take 20 mg by mouth once daily in the morning. Active metFORMIN (GLUCOPHAGE XR) 500 mg Extended-Release tablet Take 2 Tablets by mouth two times daily. 4 Active atorvastatin (LIPITOR) 20 mg tablet Take 1 Tablet by mouth once daily. 4 Active lisinopriL (PRINIVIL; ZESTRIL) 20 mg tablet Take 20 mg by mouth once daily. 4 Active metoprolol succinate (TOPROL XL) 50 mg sustained-releas e tablet Take 50 mg by mouth once daily. 4 Active Restasis 0.05 % ophthalmic emulsion 4 Active esomeprazole delayed release capsule (NEXIUM) 20 mg Take 20 mg by mouth once daily before a meal. 4 Active dextroamphetamin e-amphetamine (Adderall XR) 20 mg Extended-Release capsuleIndicatio ns:Idiopathic hypersomnia without long sleep time Take 1 Capsule (20 mg) by mouth once daily in the morning. 30 Capsule 5 09/24/19 25 Active dextroamphetamin e-amphetamine (Adderall XR) 20 mg Extended-Release capsuleIndicatio ns:Idiopathic hypersomnia without long sleep time Take 1 Capsule (20 mg) by mouth once daily in the morning. 30 Capsule 5 Active dextroamphetamin e-amphetamine (AdderalL) 20 mg tabletIndication s:Idiopathic hypersomnia without long sleep time Take 1 Tablet (20 mg) by mouth two times daily. 60 Tablet 5 09/23/19 25 Active dextroamphetamin e-amphetamine (AdderalL) 20 mg tabletIndication s:Idiopathic hypersomnia without long sleep time Take 1 Tablet (20 mg) by mouth two times daily. 60 Tablet 5 Active dextroamphetamin e-amphetamine (Adderall XR) 20 mg Extended-Release capsuleIndicatio ns:Idiopathic hypersomnia without long sleep time Take 1 Capsule (20 mg) by mouth once daily in the morning. 30 Capsule 4 08/25/19 25 dextroamphetamin e-amphetamine (AdderalL) 20 mg tabletIndication s:Idiopathic hypersomnia without long sleep time Take 1 Tablet (20 mg) by mouth two times daily. 60 Tablet 4 08/25/19 25 Active Problems Problem Noted Date Diagnosed Date Idiopathic hypersomnia without long sleep time 1 09/21/2023 Ingrowing nail 06/11/2007 Encounters Date Type Department Care Team Description 07/21/2024 2:00 PM SMALL APPLIANCE ASSEMBLY SUPERVISOR Office Visit [facility] [place] [address] [place] [phone] Agnes Santiago NP Sleep Follow-up 07/21/2024 Travel from Last 3 Months Social History Tobacco Use Types Packs/Day Years Used Date Smoking Tobacco: Never Passive Smoke Exposure: Never Smokeless Tobacco: Never Tobacco Cessation:Counseling Given: Not Answered Alcohol Use Standard Drinks/Week Comments Not Asked 0 (1 standard drink = 0.6 oz pur e alcohol) Comments No Sex and Gender Information Value Date Recorded Sex Assigned at Not on file Legal Sex Female 6:08 AM SMALL APPLIANCE ASSEMBLY SUPERVISOR Gender Identity Not on file Sexual Orientation Not on file Obstetrics History Last Filed Vital Signs Vital Sign Reading Time Taken Comments Blood Pressure 130/72 07/21/2024 2:07 PM SMALL APPLIANCE ASSEMBLY SUPERVISOR Pulse 93 07/21/2024 2:07 PM SMALL APPLIANCE ASSEMBLY SUPERVISOR Temperature - - Respiratory Rate 12 06/11/2007 9:01 AM CDT Oxygen Saturation 99% 07/21/2024 2:07 PM SMALL APPLIANCE ASSEMBLY SUPERVISOR Inhaled Oxygen Concentration - - Weight 63.5 kg (140 lb) 07/21/2024 2:07 PM SMALL APPLIANCE ASSEMBLY SUPERVISOR Height 162.6 cm (5' 4) 07/21/2024 2:07 PM SMALL APPLIANCE ASSEMBLY SUPERVISOR Body Mass Index 24.03 07/21/2024 2:07 PM SMALL APPLIANCE ASSEMBLY SUPERVISOR Plan of Treatment Upcoming Encounters Date Type Department Care Team (Late st Contact Info) Description 01/25/2025 2:40 PM CDT Telemedicine [facility] [place] [address] [place] [address] Tushar Hall MD [address] [place] [address] Health Maintenance Due Date Last Done Comments Tdap 1961 Depression screening for age 12+ 1962 Hepatitis C screening for age 18-79 1968 Tetanus booster 1970 Colonoscopy through age 75 1995 Lipids for age 45-75 1995 Mammogram for age 45-75 1995 Pneumococcal series for age 50+ (1 of 1 - PCV) 2000 Zoster (shingles) series for age 50+ (1 of 2) 2000 DEXA/DXA scan for age 65+ 2015 Medicare Wellness for age 65+ 2015 COVID-19 vaccine series ( season) 2024 12/26/2020, 11/28/2020 Influenza for age 65+ 04/12/2024 RSV vaccine for adults or pr egnancy (1 - 1-dose 75+ series) 2025 BMI (ht and wt on same day) for age 18+ 07/21/2025 1 09/21/2023 Insurance BLUE CROSS MEDICARE ADVANTAGE MR Care Teams Furniture Painter Relationship Specialty Start Date End Date Doris Petit [address] [place] [address] [address] [place] [address] PCP - General 06/21/05
--- OUTSIDE RECORDS SUMMARY | 2024-09-11 07:56 | XMS_ITS | Encounter Summary ---
Author Organization [place] Address [address] [place] [address] Care Team Providers Care Cryptologic Supervisor Name Role Phone Doris Petit MD Primary Care Provider Unav ailable Doris Petit MD Unavailable UnavailRosalva Monroy PA-C Unavailable [phone] Doris Petit MD Unavailable Unavailabl Rosalva Kimball [...] Care Pro vider Homa Marcum MD Unavailable [phone] Rosalva Doherty PA-C Unavailable + Rosalva Doherty PA-C Primary Care Provid er Homa Marcum MD Unavailable [phone] Rosalva Doherty PA-C Unavailable + [phone] Encounter Details Date Type Department Care Team (Late st Contact Info) Description 03/25/2013 MyC Medical Advice [facility] [address] [place] [phone] Dania Hartley Social History Tobacco Use Types Packs/Day Years Used Date Smoking Tobacco: Never Smokeless Tobacco: Never Alcohol Use Standard Drinks/Week Comments No 0 (1 standard drink = 0.6 oz pur e alcohol) Comments No Sex and Gender Information Value Date Recorded Sex Assigned at Female 01/14/2019 3:50 PM CDT 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 Petit.....Guess we are all getting older. Dr. Dean RETIRED Yesterday.....what timing. I did make an appointment with a PA at the [place] office. Do you have any other doctor suggestions? If not it's okay.....I just feel better getting away from her and usually I can get along with anyone. Next question.....were you going to prescribe cholesterol medication for me? Apparently, only the dietetic prescription was received by the [facility]. Good seeing you again......thanks for your help. Claudia documented in this encounter Plan of Treatment Not on file documented as of this encounter Visit Diagnoses Not on filedocumented in this encounter Care Teams Cryptologic Supervisor Relationship Specialty Start Date End Date Doris Petit MD PCP - General 11/23/05 02/14/20 Rosalva Doherty PA-C [address], [address] [place] [address] PCP - General Physician Dope House Operator Helper 02/15/20 10/18/20 Edwige Chacko MD [address], [address] [place] [address] PCP - General Family Medicine 10/19/20 06/15/21 Rosalva Doherty PA-C [address], [address] [place] [address], [place] [address] PCP - General Family Medicine 06/16/21 11/22/21 Mary Laughlin PA-C [address], [address] [place] [address] PCP - General Family Medicine 11/23/21 11/12/22 Rosalva Doherty PA-C [address], [address] [place] [address] PCP - General Family Medicine 11/13/22 Doris Petit MD NO INFO AVAILABLE 03/07/23 Assigned PCP 05/15/12 11/07/19 Rosalva Doherty PA-C [address], [address] [place] [address] Assigned PCP 11/08/19 12/05/19 Doris Petit MD NO INFO AVAILABLE 03/07/23 Assigned PCP 12/06/19 01/02/20 Rosalva Doherty PA-C [address], [address] [place] [address] Assigned PCP 01/03/20 10/22/20 Edwige Chacko MD [address], [address] [place] [address] Assigned PCP 10/23/20 10/30/20 Rosalva Doherty PA-C [address], [address] [place] [address] Assigned PCP 10/31/20 02/23/21 Edwige Chacko MD [address], [address] [place] [address] Assigned PCP 02/24/21 04/01/21 Rosalva Doherty PA-C [address], [address] [place] [address] Assigned PCP 04/02/21 03/02/22 Homa Marcum MD [address] [place] [address] Assigned PCP 03/03/22 03/23/22 Rosalva Doherty PA-C [address], [address] [place] [address] Assigned PCP 03/24/22 03/01/23 Homa Marcum MD [address] [place] [address] Assigned PCP 03/02/23 05/17/23 Rosalva Doherty PA-C [address], [address] [place] [address] Assigned PCP 05/18/23 documented as of this encounter
--- OUTSIDE RECORDS SUMMARY | 2024-09-11 07:56 | XMS_ITS | Encounter Summary ---
Author Organization [facility] Address [address] [place] [address] Care Team Providers Care Lumber Grader Name Role Phone Rosalva Doherty PA-C Unavailable +[phone] Rosalva Doherty PA-C Primary Care Provid er Mary Laughlin PA-C Primary Care Pro vider Homa Marcum MD Unavailable [phone] Rosalva Doherty PA-C Unavailable + [phone] Rosalva Doheryt PA-C Primary Care Provid er Homa Marcum MD Unavailable [phone] Rosalva Doherty PA-C Unavailable + [phone] Encounter Details Date Type Department Care Team (Late st Contact Info) Description 08/29/2021 MyC Medical Advice [facility] [address] [place] [address] [place] [address] Rosalva Doherty PA-C [address] [facility] [address] [place], [place] [id number] Social History Tobacco Use Types Packs/Day Years [...] PM CDT 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 No / Unsure 08/31/2021 2:35 PM YARD RIGGER documented as of this encounter Plan of Treatment Not on file documented as of this encounter Visit Diagnoses Not on filedocumented in this encounter Care Teams Lumber Grader Relationship Specialty Start Date End Date Rosalva Doherty PA-C [address], [address] [place] [address] PCP - General Family Medicine 06/16/21 11/22/21 Mary Laughlin PA-C [address], [address] [place] [address] PCP - General Family Medicine 11/23/21 11/12/22 Rosalva Doherty PA-C [address], [address] [place] [address] PCP - General Family Medicine 11/13/22 Rosalva Doherty PA-C [address], [address] [place] [address] Assigned PCP 04/02/21 03/02/22 Homa Marcum MD [address] [place] [address] Assigned PCP 03/03/22 03/23/22 Rosalva Doherty PA-C [address], [address] [place] [address] Assigned PCP 03/24/22 03/01/23 Homa Marcum MD [address] [place] [address] Assigned PCP 03/02/23 05/17/23 Rosalva Doherty PA-C [address], [address] [place] [address] Assigned PCP 05/18/23 documented as of this encounter
--- OUTSIDE RECORDS SUMMARY | 2024-09-11 07:56 | XMS_ITS | Encounter Summary ---
Author Organization [place] Address [address] [place] [address] Care Team Providers Care Sports Analyst Name Role Phone Doris Petit MD Primary Care Provider Unav ailable Doris Petit MD Unavailable UnavailRosalva Monroy PA-C Unavailable [phone] Doris Petit MD Unavailable Unavailabl Rosalva Kimball [...] Care Pro vider Homa Marcum MD Unavailable [phone] Rosalva Doherty PA-C Unavailable + Rosalva Doherty PA-C Primary Care Provid er Homa Marcum MD Unavailable [phone] Rosalva Doherty PA-C Unavailable + [phone] Encounter Details Date Type Department Care Team (Late st Contact Info) Description 12/28/2015 Orders Only [facility] [address] [place] [address] Lamont Blanchard MD [facility] [address] [place] [phone] Pre-operative laboratory examination (Primary Dx) Social History Tobacco Use Types Packs/Day Years Used Date Smoking Tobacco: Never Smokeless Tobacco: Never Alcohol Use Standard Drinks/Week Comments No 0 (1 standard drink = 0.6 oz pur e alcohol) Comments No Sex and Gender Information Value Date Recorded Sex Assigned at Female 01/14/2019 3:50 PM CDT 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 aureus PCR Negative MRSA Negative: SA Negative MRSA and Staphylococcus aureus target DNA not detected, presumed negative for MRSA and SA colonization or the number of bacteria present may be below the limit of detection for the assay. FDA approved assay performed using Chat& (ChatAnd) GeneXpert(R) real-time PCR. NEG [facility] 01/03/2016 1:56 PM CDT 01/03/2016 2:21 PM CDT us Koby Simms MD LAB - MICRO GENERAL ORD ERABLES Final Result [facility] [address] [place], [place] [address] [address] [place], [place] [address] [phone] documented in this encounter Visit Diagnoses Diagnosis Pre-operative laboratory examination- Primary Pre-procedural laboratory examination documented in this encounter Care Teams Sports Analyst Relationship Specialty Start Date End Date Doris Petit MD PCP - General 11/23/05 02/14/20 Rosalva Doherty PA-C [address], [address] [place] [address] PCP - General Physician Director Clinical Research 02/15/20 10/18/20 Edwige Chacko MD [address], [address] [place] [address] PCP - General Family Medicine 10/19/20 06/15/21 Rosalva Doherty PA-C [address], [address] [place] [address] PCP - General Family Medicine 06/16/21 11/22/21 Mary Laughlin PA-C [address], [address] [place] [address] PCP - General Family Medicine 11/23/21 11/12/22 Rosalva Doherty PA-C [address], [address] [place] [address] PCP - General Family Medicine 11/13/22 Doris Petit MD NO INFO AVAILABLE 03/07/23 Assigned PCP 05/15/12 11/07/19 Rosalva Doherty PA-C [address], [address] [place] [address] Assigned PCP 11/08/19 12/05/19 Doris Petit MD NO INFO AVAILABLE 03/07/23 Assigned PCP 12/06/19 01/02/20 Rosalva Doherty PA-C [address], [address] [place] [address] Assigned PCP 01/03/20 10/22/20 Edwige Chacko MD [address], [address] [place] [address] Assigned PCP 10/23/20 10/30/20 Rosalva Doherty PA-C [address], [address] [place] [address] Assigned PCP 10/31/20 02/23/21 Edwige Chacko MD [address], [address] [place] [address], [place] [address] Assigned PCP 02/24/21 04/01/21 Rosalva Doherty PA-C [address], [address] [place] [address] Assigned PCP 04/02/21 03/02/22 Homa Marcum MD [address] [place] [address] Assigned PCP 03/03/22 03/23/22 Rosalva Doherty PA-C [address], [address] [place] [address] Assigned PCP 03/24/22 03/01/23 Homa Marcum MD [address] [place] [address] Assigned PCP 03/02/23 05/17/23 Rosalva Doherty PA-C [address], [facility] [address] [place] [address] Assigned PCP 05/18/23 documented as of this encounter
--- OUTSIDE RECORDS SUMMARY | 2024-09-11 07:56 | XMS_ITS | Encounter Summary ---
Author Organization [facility] Address [address] [place] [address] Care Team Providers Care Post Framer Name Role Phone Doris Petit MD Primary Care Provider Unav ailable Doris Petit MD Unavailable UnavailRosalva Monroy PA-C Unavailable [phone] Doris Petit MD Unavailable Unavailabl Rosalva Kimball [...] Care Pro vider Homa Marcum MD Unavailable [phone] Rosalva Doherty PA-C Unavailable + Rosalva Doherty PA-C Primary Care Provid er Homa Marcum MD Unavailable [phone] Rosalva Doherty PA-C Unavailable + [phone] Reason for Visit * Reason Onset Date Comments Nutrition Counseling 07/09/2018 Encounter Details Date Type Department Care Team (Late Contact Info) Description 07/09/2018 Telephone [facility] [address] [place] [address] [address] [place] [address] Doris Petit MD NO INFO AVAILABLE 03/07/23 Nutrition Counseling Social History Tobacco Use Types Packs/Day Years Used Date Smoking Tobacco: Never Smokeless Tobacco: Never Alcohol Use Standard Drinks/Week Comments No 0 (1 standard drink = 0.6 oz pur e alcohol) Comments No Sex and Gender Information Value Date Recorded Sex Assigned at Female 01/14/2019 3:50 PM CDT 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 Left message with phone number to call to schedule. Plan for 2nd outreach attempt within 1 week. Jimena Thomson [facility] ICATIONS DEVELOPMENT ANALYST documented in this encounter Plan of Treatment Not on file documented as of this encounter Visit Diagnoses Not on filedocumented in this encounter Care Teams Post Framer Relationship Specialty Start Date End Date Doris Petit MD PCP - General 11/23/05 02/14/20 Rosalva Doherty PA-C [address] [place] [address] PCP - General Physician Credit Underwriter 02/15/20 10/18/20 Edwige Chacko MD [address], [address] [place] [address] PCP - General Family Medicine 10/19/20 06/15/21 Rosalva Doherty PA-C [address], [address] [place] [address] PCP - General Family Medicine 06/16/21 11/22/21 Mary Laughlin PA-C [address], [address] [place] [address], [place] [address] PCP - General Family Medicine 11/23/21 11/12/22 Rosalva Doherty PA-C [address], [address] [address] PCP - General Family Medicine 11/13/22 Doris Petit MD NO INFO AVAILABLE 03/07/23 Assigned PCP 05/15/12 11/07/19 Rosalva Doherty PA-C [address], [address] [address] Assigned PCP 11/08/19 12/05/19 Doris Petit MD NO INFO AVAILABLE 03/07/23 Assigned PCP 12/06/19 01/02/20 Rosalva Doherty PA-C [address], [address] [place] [address], [place] [address] Assigned PCP 01/03/20 10/22/20 Edwige Chacko MD [address], [address] [place] [address] Assigned PCP 10/23/20 10/30/20 Rosalva Doherty PA-C [address], [address] [place] [address] Assigned PCP 10/31/20 02/23/21 Edwige Chacko MD [address], [address] [place] [address] Assigned PCP 02/24/21 04/01/21 Rosalva Doherty PA-C [address] , [address] [place] [address] Assigned PCP 04/02/21 03/02/22 Homa Marcum MD [address] [place] [address] Assigned PCP 03/03/22 03/23/22 Rosalva Doherty PA-C [address], [address] [place] [address] Assigned PCP 03/24/22 03/01/23 Homa Marcum MD [address] [place] [address] Assigned PCP 03/02/23 05/17/23 Rosalva Doherty PA-C [address] [address] Assigned PCP 05/18/23 documented as of this encounter
--- OUTSIDE RECORDS SUMMARY | 2024-09-11 07:56 | XMS_ITS | Encounter Summary ---
Author Organization [place] Address [address] [place] [address] Care Team Providers Care Supercalender Operator Helper Name Role Phone Doris Petit MD Primary Care Provider Unav ailable Doris Petit MD Unavailable UnavailRosalva Monroy PA-C Unavailable +[phone] Doris Petit MD Unavailable Unavailabl Rosalva Kimball [...] Care Pro vider Homa Marcum MD Unavailable [phone] Rosalva Doherty PA-C Unavailable + Rosalva Doherty PA-C Primary Care Provid er Homa Marcum MD Unavailable +[phone] Rosalva Doherty PA-C Unavailable + [phone] Reason for Visit * Reason Comments Medication Refill Encounter Details Date Type Department Care Team (Late st Contact Info) Description 11/04/2017 Refill [facility] [address] [place] [phone] Doris Petit MD NO INFO AVAILABLE 03/07/23 Medication Refill Social History Tobacco Use Types Packs/Day Years Used Date Smoking Tobacco: Never Smokeless Tobacco: Never Alcohol Use Standard Drinks/Week Comments No 0 (1 standard drink = 0.6 oz pur e alcohol) Comments No Sex and Gender Information Value Date Recorded Sex Assigned at Female 01/14/2019 3:50 PM CDT 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 * Telephone Encounter - Aurelia Birch MA - 11/04/2017 12:09 PM CDT [facility] Metformin Pt is due for a FASTING OV Sent my chart message also [place] [phone] (home) documented in this encounter Plan of Treatment Not on file documented as of this encounter Visit Diagnoses Diagnosis Type 2 diabetes mellitus without complication, without long-term current use of insulin (H) documented in this encounter Care Teams Supercalender Operator Helper Relationship Specialty Start Date End Date Doris Petit MD PCP - General 11/23/05 02/14/20 Rosalva Doherty PA-C [address], [address] [place] [address] PCP - General Physician Modeling And Simulation Analyst 02/15/20 10/18/20 Edwige Chacko MD [address], [address] [place] [address] PCP - General Family Medicine 10/19/20 06/15/21 Rosalva Doherty PA-C [address], [address] [place] [address] PCP - General Family Medicine 06/16/21 11/22/21 Mary Laughlin PA-C [address], [address] [place] [address] PCP - General Family Medicine 11/23/21 11/12/22 Rosalva Doherty PA-C [address], [address] [place] [address] PCP - General Family Medicine 11/13/22 Doris Petit MD NO INFO AVAILABLE 03/07/23 Assigned PCP 05/15/12 11/07/19 Rosalva Doherty PA-C [address], [address] [address] Assigned PCP 11/08/19 12/05/19 Doris Petit MD NO INFO AVAILABLE 03/07/23 Assigned PCP 12/06/19 01/02/20 Rosalva Doherty PA-C [address], [address] [place] [address] Assigned PCP 01/03/20 10/22/20 Edwige Chacko MD [address], [address] [place] [address] Assigned PCP 10/23/20 10/30/20 Rosalva Doherty PA-C [address], [address] [place] [address] Assigned PCP 10/31/20 02/23/21 Edwige Chacko MD [address], [address] [place] [address] Assigned PCP 02/24/21 04/01/21 Rosalva Doherty PA-C [address], [address] [place] [address] Assigned PCP 04/02/21 03/02/22 Homa Marcum MD [address] [place] [address] Assigned PCP 03/03/22 03/23/22 Rosalva Doherty PA-C [address], [address] [place] [address] Assigned PCP 03/24/22 03/01/23 Homa Marcum MD [address] [place] [address] Assigned PCP 03/02/23 05/17/23 Rosalva Doherty PA-C [address] , [facility] [address] [place] [address] Assigned PCP 05/18/23 documented as of this encounter
--- OUTSIDE RECORDS SUMMARY | 2024-09-11 07:56 | XMS_ITS | Encounter Summary ---
Author Organization [place] Address [address] [place] [address] Care Team Providers Care Propeller Inspector Name Role Phone Doris Petit MD Primary Care Provider Unav ailable Doris Petit MD Unavailable UnavailRosalva Monroy PA-C Unavailable +[phone] Doris Petit MD Unavailable Unavailabl Rosalva Kimball [...] Care Pro vider Homa Marcum MD Unavailable [phone] Rosalva Doherty PA-C Unavailable + Rosalva Doherty PA-C Primary Care Provid er Homa Marcum MD Unavailable Rosalva Doherty PA-C Unavailable +- [phone] Reason for Visit * Reason Comments Medication Refill Encounter Details Date Type Department Care Team (Late st Contact Info) Description 01/11/2015 Refill [facility] [address] [place] [phone] Doris Petit MD NO INFO AVAILABLE 03/07/23 Medication Refill Social History Tobacco Use Types Packs/Day Years Used Date Smoking Tobacco: Never Smokeless Tobacco: Never Alcohol Use Standard Drinks/Week Comments No 0 (1 standard drink = 0.6 oz pur e alcohol) Comments No Sex and Gender Information Value Date Recorded Sex Assigned at Female 01/14/2019 3:50 PM CDT 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 Gender Identity Female 01/14/2019 3:50 PM CDT Sexual Orientation Not on file documented as of this encounter Plan of Treatment Not on file documented as of this encounter Visit Diagnoses Not on filedocumented in this encounter Care Teams Propeller Inspector Relationship Specialty Start Date End Date Doris Petit MD PCP - General 11/23/05 02/14/20 Rosalva Doherty PA-C [address] [address] PCP - General Physician Homebound Teacher 02/15/20 10/18/20 Edwige Chacko MD [address], [address] [address] PCP - General Family Medicine 10/19/20 06/15/21 Rosalva Doherty PA-C [address] [address] PCP - General Family Medicine 06/16/21 11/22/21 Mary Laughlin PA-C [address], [address] [address] PCP - General Family Medicine 11/23/21 11/12/22 Rosalva Doherty PA-C [address], [address] [address] PCP - General Family Medicine 11/13/22 Doris Petit MD NO INFO AVAILABLE 03/07/23 Assigned PCP 05/15/12 11/07/19 Rosalva Doherty PA-C [address], [address] [address] Assigned PCP 11/08/19 12/05/19 Doris Petit MD NO INFO AVAILABLE 03/07/23 Assigned PCP 12/06/19 01/02/20 Rosalva Doherty PA-C [address], [address] [address] Assigned PCP 01/03/20 10/22/20 Edwige Chacko MD [address], [address] [address] Assigned PCP 10/23/20 10/30/20 Rosalva Doherty PA-C [address], [address] [address] Assigned PCP 10/31/20 02/23/21 Edwige Chacko MD [address], [facility] [address] [place] [address] Assigned PCP 02/24/21 04/01/21 Rosalva Doherty PA-C [address], [facility] [address] [place] [address] Assigned PCP 04/02/21 03/02/22 Homa Marcum MD [address] [place] [address] Assigned PCP 03/03/22 03/23/22 Rosalva Doherty PA-C [address], [facility] [address] [place] [address] Assigned PCP 03/24/22 03/01/23 Homa Macrum MD [address] [place] [address] Assigned PCP 03/02/23 05/17/23 Rosalva Doherty PA-C [address], [facility] [address] [place] [address] Assigned PCP 05/18/23 documented as of this encounter
--- OUTSIDE RECORDS SUMMARY | 2024-09-11 07:56 | XMS_ITS | Encounter Summary ---
Author Organization [place] Address [address] [place] [address] Care Team Providers Care Associate Professor Of Literature Name Role Phone Doris Petit MD Primary Care Provider Unav ailable Doris Petit MD Unavailable UnavailRosalva Monroy PA-C Unavailable +[phone] Doris Petit MD Unavailable Unavailabl Rosalva Kimball [...] Care Pro vider Homa Marcum MD Unavailable [phone] Rosalva Doherty PA-C Unavailable + Rosalva Doherty PA-C Primary Care Provid er Homa Marcum MD Unavailable +[phone] Rosalva Doherty PA-C Unavailable + [phone] Reason for Visit * Reason Comments Medication Refill Encounter Details Date Type Department Care Team (Late st Contact Info) Description 01/31/2017 Refill [facility] [address] [place] [address] [address] [place] [phone] Doris Petit MD NO INFO AVAILABLE 03/07/23 Medication Refill Social History Tobacco Use Types Packs/Day Years Used Date Smoking Tobacco: Never Smokeless Tobacco: Never Alcohol Use Standard Drinks/Week Comments No 0 (1 standard drink = 0.6 oz pur e alcohol) Comments No Sex and Gender Information Value Date Recorded Sex Assigned at Female 01/14/2019 3:50 PM CDT 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 * Telephone Encounter - Kathie Conway CMA - 01/31/2017 2:22 PM CDT Ok refill of lisinopril and atorvastatin for 1 month sent to [facility]. Pt needs fasting OV per MD for refills. Kathie Blancas [phone] (home) documented in this encounter Plan of Treatment Not on file documented as of this encounter Visit Diagnoses Diagnosis Essential hypertension, benign Type 2 diabetes mellitus without complication, without long-term current use of insulin (H) documented in this encounter Care Teams Associate Professor Of Literature Relationship Specialty Start Date End Date Doris Petit MD PCP - General 11/23/05 02/14/20 Rosalva Doherty PA-C [address], [facility] [address] [place] [address] PCP - General Physician Independent Trader 02/15/20 10/18/20 Edwige Chacko MD [address], [facility] [address] [place] [address] PCP - General Family Medicine 10/19/20 06/15/21 Rosalva Doherty PA-C [address], [facility] [address] [place] [address], [place] [address] PCP - General Family Medicine 06/16/21 11/22/21 Mary Laughlin PA-C [address], [facility] [address] [place] [address] PCP - General Family Medicine 11/23/21 11/12/22 Rosalva Doherty PA-C [address], [address] [place] [address] PCP - General Family Medicine 11/13/22 Doris Petit MD NO INFO AVAILABLE 03/07/23 Assigned PCP 05/15/12 11/07/19 Rosalva Doherty PA-C [address], [address] [place] [address] Assigned PCP 11/08/19 12/05/19 Doris Petit MD NO INFO AVAILABLE 03/07/23 Assigned PCP 12/06/19 01/02/20 Rosalva Doherty PA-C [address], [address] [place] [address] Assigned PCP 01/03/20 10/22/20 Edwige Chacko MD [address], [address] [place] [address] Assigned PCP 10/23/20 10/30/20 Rosalva Doherty PA-C [address], [address] [place] [address] Assigned PCP 10/31/20 02/23/21 Edwige Chacko MD [address], [address] [place] [address] Assigned PCP 02/24/21 04/01/21 Rosalva Doherty PA-C [address], [address] [place] [address] Assigned PCP 04/02/21 03/02/22 Homa Marcum MD [address] [place] [address] Assigned PCP 03/03/22 03/23/22 Rosalva Doherty PA-C [address], [address] [place] [address] Assigned PCP 03/24/22 03/01/23 Homa Marcum MD [address] [place] [address] Assigned PCP 03/02/23 05/17/23 Rosalva Doherty PA-C [address], [facility] [address] [place] [address] Assigned PCP 05/18/23 documented as of this encounter
--- OUTSIDE RECORDS SUMMARY | 2024-09-11 07:56 | XMS_ITS | Encounter Summary ---
Author Organization [place] Address [address] [place] [address] Care Team Providers Care Frog Or Oyster Farmworker Name Role Phone Doris Petit MD Primary Care Provider Unav ailable Doris Petit MD Unavailable UnavailRosalva Monroy PA-C Unavailable +[phone] Doris Petit MD Unavailable Unavailabl Rosalva Kimball [...] Care Pro vider Homa Marcum MD Unavailable [phone] Rosalva Doherty PA-C Unavailable + Rosalva Doherty PA-C Primary Care Provid er Homa Marcum MD Unavailable [phone] Rosalva Doherty PA-C Unavailable [phone] Encounter Details Date Type Department Care Team (Late st Contact Info) Description 12/28/2015 [facility] Only [facility] [address] [place] [phone] Lamont Blanchard MD [facility] [address] [facility] [address] [place] [phone] Pre-operative laboratory examination (Primary Dx) Social History Tobacco Use Types Packs/Day Years Used Date Smoking Tobacco: Never Smokeless Tobacco: Never Alcohol Use Standard Drinks/Week Comments No 0 (1 standard drink = 0.6 oz pur e alcohol) Comments No Sex and Gender Information Value Date Recorded Sex Assigned at Female 01/14/2019 3:50 PM CDT Legal Sex Female 2:59 AM ELASTIC ATTACHER CHAINSTITCH Gender Identity Female 01/14/2019 3:50 PM CDT Sexual Orientation Not on file documented as of this encounter Plan of Treatment Not on file documented as of this encounter Visit Diagnoses Diagnosis Pre-operative laboratory examination- Primary Pre-procedural laboratory examination documented in this encounter Care Teams Frog Or Oyster Farmworker Relationship Specialty Start Date End Date Doris Petit MD PCP - General 11/23/05 02/14/20 Rosalva Doherty PA-C [address] , [facility] 100 [place] [address] PCP - General Physician Epoxy Fabrication Supervisor 02/15/20 10/18/20 Edwige Chacko MD [address] , [facility] 100 [place] [address] PCP - General Family Medicine 10/19/20 06/15/21 Rosalva Doherty PA-C [address], [facility] [address] [facility] [place] [address] PCP - General Family Medicine 06/16/21 11/22/21 Mary Laughlin PA-C [address], [facility] [address] [facility] [place] [address] PCP - General Family Medicine 11/23/21 11/12/22 Rosalva Doherty PA-C [address], [facility] [address] [place] [address] PCP - General Family Medicine 11/13/22 Doris Petit MD NO INFO AVAILABLE 03/07/23 Assigned PCP 05/15/12 11/07/19 Rosalva Doherty PA-C [address], [facility] [address] [place] [address] Assigned PCP 11/08/19 12/05/19 Doris Petit MD NO INFO AVAILABLE 03/07/23 Assigned PCP 12/06/19 01/02/20 Rosalva Doherty PA-C [address], [facility] [address] [place] [address] Assigned PCP 01/03/20 10/22/20 Edwige Chacko MD [address], [facility] [address] [facility] [place] [address] Assigned PCP 10/23/20 10/30/20 Rosalva Doherty PA-C [address], [facility] [address] [place] [address] Assigned PCP 10/31/20 02/23/21 Edwige Chacko MD [address], [facility] [address] [place] [address] Assigned PCP 02/24/21 04/01/21 Rosalva Doherty PA-C [address], [facility] [address] [place] [address] Assigned PCP 04/02/21 03/02/22 Homa Marcum MD [address] [place] [address] Assigned PCP 03/03/22 03/23/22 Rosalva Doherty PA-C [address], [facility] [address] [place] [address] Assigned PCP 03/24/22 03/01/23 Homa Marcum MD [address] [place] [address] Assigned PCP 03/02/23 05/17/23 Rosalva Doherty PA-C [address], [facility] [address] [place] [address], [place] [address] Assigned PCP 05/18/23 documented as of this encounter
--- OUTSIDE RECORDS SUMMARY | 2024-09-11 07:56 | XMS_ITS | Encounter Summary ---
Author Organization [facility] Address [address] [place] [address] Care Team Providers Care Security Engineer Name Role Phone Doris Petit MD Primary Care Provider Unav ailable Doris Petit MD Unavailable UnavailRosalva Monroy PA-C Unavailable [phone] Doris Petit MD Unavailable Unavailabl Rosalva Kimball [...] Care Pro vider Homa Marcum MD Unavailable [phone] Rosalva Doherty PA-C Unavailable + Rosalva Doherty PA-C Primary Care Provid er Homa Marcum MD Unavailable Rosalva Doherty PA-C Unavailable [phone] Encounter Details Date Type Department Care Team (Late st Contact Info) Description 10/25/2015 MyC Medical Advice [facility] [address] [place] [address] [place] [phone] Kristal Escalera MLT Social History Tobacco Use Types Packs/Day Years Used Date Smoking Tobacco: Never Smokeless Tobacco: Never Alcohol Use Standard Drinks/Week Comments No 0 (1 standard drink = 0.6 oz pur e alcohol) Comments No Sex and Gender Information Value Date Recorded Sex Assigned at Female 01/14/2019 3:50 PM CDT Legal Sex Female 2:59 AM DIRECTOR SALES Gender Identity Female 01/14/2019 3:50 PM CDT Sexual Orientation Not on file documented as of this encounter Plan of Treatment Not on file documented as of this encounter Visit Diagnoses Not on filedocumented in this encounter Care Teams Security Engineer Relationship Specialty Start Date End Date Doris Petit MD PCP - General 11/23/05 02/14/20 Rosalva Doherty PA-C [address] [address] PCP - General Physician Environmental Laboratory Technician 02/15/20 10/18/20 Edwige Chacko MD [address], [address] [address] PCP - General Family Medicine 10/19/20 06/15/21 Rosalva Doherty PA-C [address] [address] PCP - General Family Medicine 06/16/21 11/22/21 Mary Laughlin PA-C [address], [facility] [address] [place] [address] PCP - General Family Medicine 11/23/21 11/12/22 Rosalva Doherty PA-C [address], [facility] [address] [place] [address] PCP - General Family Medicine 11/13/22 Doris Petit MD NO INFO AVAILABLE 03/07/23 Assigned PCP 05/15/12 11/07/19 Rosalva Doherty PA-C [address], [facility] [address] [place] [address], [place] [address] Assigned PCP 11/08/19 12/05/19 Doris Petit MD NO INFO AVAILABLE 03/07/23 Assigned PCP 12/06/19 01/02/20 Rosalva Doherty PA-C [address], [facility] [address] [place] [address] Assigned PCP 01/03/20 10/22/20 Edwige Chacko MD [address], [facility] [address] [place] [address] Assigned PCP 10/23/20 10/30/20 Rosalva Doherty PA-C [address], [facility] [address] [place] [address] Assigned PCP 10/31/20 02/23/21 Edwige Chacko MD [address], [facility] [address] [place] [address] Assigned PCP 02/24/21 04/01/21 Rosalva Doherty PA-C [address], [facility] [address] [place] [address] Assigned PCP 04/02/21 03/02/22 Homa Marcum MD [address] [place] [address] Assigned PCP 03/03/22 03/23/22 Rosalva Doherty PA-C [address], [facility] [address] [place] [address] Assigned PCP 03/24/22 03/01/23 Homa Marcum MD [address] [place] [address] Assigned PCP 03/02/23 05/17/23 Rosalva Doherty PA-C [address], [facility] [address] [place] [address] Assigned PCP 05/18/23 documented as of this encounter
--- OUTSIDE RECORDS SUMMARY | 2024-09-11 07:56 | XMS_ITS | Encounter Summary ---
Author Organization [facility] Address [address] [place] [address] Care Team Providers Care Nail Assembly Machine Operator Name Role Phone Rosalva Doherty PA-C Unavailable [phone] Rosalva Doherty PA-C Primary Care Provid er + Edwige Chacko MD Primary Care Provider + Edwige Chacko MD Unavailable +- [phone] Rosalva Doherty PA-C Unavailable + Edwige Chacko MD Unavailable +- [phone] Rosalva Doherty PA-C Unavailable + Rosalva Doherty PA-C Primary Care Provid er + Mary Laughlin PA-C Primary Care Pro vider Homa Marcum MD Unavailable [phone] Rosalva Doherty PA-C Unavailable + Rosalva Doherty PA-C Primary Care Provid er Homa Marcum MD Unavailable +[phone] Rosalva Doherty PA-C Unavailable [phone] Reason for Visit * Reason Onset Date Comments Outreach 03/16/2020 Encounter Details Date Type Department Care Team (Late st Contact Info) Description 03/16/2020 MyC Medical Advice [facility] [address] [address] [place] [address] Kathie Conway, [facility] Outreach Social History Tobacco Use Types Packs/Day Years Used Date Smoking Tobacco: Never Smokeless Tobacco: Never Alcohol Use Standard Drinks/Week Comments No 0 (1 standard drink = 0.6 oz pur e alcohol) PHQ-2 Answer Date Recorded PHQ-2 Score 0 08/19/2018 Comments No Sex and Gender Information Value Date Recorded Sex Assigned at Female 01/14/2019 3:50 PM CDT Legal Sex Female 2:59 AM FLAME CHANNELER Gender Identity Female 01/14/2019 3:50 PM CDT Sexual Orientation Not on file COVID-19 Exposure Response Date Recorded In the last month, have you been in contact with someone who was confirmed or suspected to have Coronavirus / COVID-19? No / Unsure 02/16/2020 12:11 PM CDT documented as of this encounter Plan of Treatment Not on file documented as of this encounter Visit Diagnoses Not on filedocumented in this encounter Care Teams Nail Assembly Machine Operator Relationship Specialty Start Date End Date Rosalva Doherty PA-C [address] [address] PCP - General Physician Business And Marketing Teacher 02/15/20 10/18/20 Edwige Chacko MD [address] [address] PCP - General Family Medicine 10/19/20 06/15/21 Rosalva Doherty PA-C [address] [address] PCP - General Family Medicine 06/16/21 11/22/21 Mary Laughlin PA-C [address], [address] [place] [address] PCP - General Family Medicine 11/23/21 11/12/22 Rosalva Doherty PA-C [address], [address] [address] PCP - General Family Medicine 11/13/22 Rosalva Doherty PA-C [address] , [address] [address] Assigned PCP 01/03/20 10/22/20 Edwige Chacko MD [address], [address] [address] Assigned PCP 10/23/20 10/30/20 Rosalva Doherty PA-C [address] , [address] [address] Assigned PCP 10/31/20 02/23/21 Edwige Chacko MD [address], [address] [address] Assigned PCP 02/24/21 04/01/21 Rosalva Doherty PA-C [address] , [address] [address] Assigned PCP 04/02/21 03/02/22 Homa Marcum MD [address] [facility] [place] [address] Assigned PCP 03/03/22 03/23/22 Rosalva Doherty PA-C [address] , [address] [place] [address] Assigned PCP 03/24/22 03/01/23 Homa Marcum MD [address] [facility] [address] Assigned PCP 03/02/23 05/17/23 Rosalva Doherty PA-C [address] , [address] [place] [address] Assigned PCP 05/18/23 documented as of this encounter
--- OUTSIDE RECORDS SUMMARY | 2024-09-11 07:57 | XMS_ITS | Encounter Summary ---
Author Organization [facility] Address [address] [place] [address] Care Team Providers Care Construction Area Manager Name Role Phone Doris Petit MD Primary Care Provider Unav ailable Doris Petit MD Unavailable UnavailRosalva Monroy PA-C Unavailable +[phone] Doris Petit MD Unavailable Unavailabl Rosalva Kimball [...] Care Pro vider Homa Marcum MD Unavailable [phone] Rosalva Doherty PA-C Unavailable + Rosalva Doherty PA-C Primary Care Provid er Homa Marcum MD Unavailable Rosalva Doherty PA-C Unavailable +- [phone] Encounter Details Date Type Department Care Team (Late st Contact Info) Description 05/02/2017 MyC Medical Advice [facility] [address] [place] [phone] Kathie Conway CMA Social History Tobacco Use Types Packs/Day Years Used Date Smoking Tobacco: Never Smokeless Tobacco: Never Alcohol Use Standard Drinks/Week Comments No 0 (1 standard drink = 0.6 oz pur e alcohol) Comments No Sex and Gender Information Value Date Recorded Sex Assigned at Female 01/14/2019 3:50 PM CDT Legal Sex Female 2:59 AM CONFERENCE SERVICES COORDINATOR Gender Identity Female 01/14/2019 3:50 PM CDT Sexual Orientation Not on file documented as of this encounter Miscellaneous Notes * Telephone Encounter - Kathie Conway CMA - 05/17/2017 8:00 AM CDT Letter sent documented in this encounter Plan of Treatment Not on file documented as of this encounter Visit Diagnoses Not on filedocumented in this encounter Care Teams Construction Area Manager Relationship Specialty Start Date End Date Doris Petit MD PCP - General 11/23/05 02/14/20 Rosalva Doherty PA-C [address] , [address] [address] PCP - General Physician High Speed Printer Operator 02/15/20 10/18/20 Edwige Chacko MD [address] , [address] [address] PCP - General Family Medicine 10/19/20 06/15/21 Rosalva Doherty PA-C [address], [facility] [address] [place] [address] PCP - General Family Medicine 06/16/21 11/22/21 Mary Laughlin PA-C [address], [facility] [address] [place] [address] PCP - General Family Medicine 11/23/21 11/12/22 Rosalva Doherty PA-C [address], [facility] [address] [place] [address] PCP - General Family Medicine 11/13/22 Doris Petit MD NO INFO AVAILABLE 03/07/23 Assigned PCP 05/15/12 11/07/19 Rosalva Doherty PA-C [address], [address] [address] Assigned PCP 11/08/19 12/05/19 Doris Petit MD NO INFO AVAILABLE 03/07/23 Assigned PCP 12/06/19 01/02/20 Rosalva Doherty PA-C [address], [facility] [address] [place] [address] Assigned PCP 01/03/20 10/22/20 Edwige Chacko MD [address], [facility] [address] [place] [address] Assigned PCP 10/23/20 10/30/20 Rosalva Doherty PA-C [address], [address] [place] [address] Assigned PCP 10/31/20 02/23/21 Edwige Chacko MD [address], [address] [place] [address] Assigned PCP 02/24/21 04/01/21 Rosalva Doherty PA-C [address] , [address] [place] [address] Assigned PCP 04/02/21 03/02/22 Homa Marcum MD [address] [place] [address] Assigned PCP 03/03/22 03/23/22 Rosalva Doherty PA-C [address], [address] [place] [address] Assigned PCP 03/24/22 03/01/23 Homa Marcum MD [address] [place] [address] Assigned PCP 03/02/23 05/17/23 Rosalva Doherty PA-C [address], [address] [place] [address] Assigned PCP 05/18/23 documented as of this encounter
[2024-09-11] MEDS: OXYMETAZOLINE 0.05% NASAL SPRAY 2 SPRAY NOSTRIL-B (08:40)
[2024-09-11] MEDS: 0.9 % SODIUM CHLORIDE 500 ML 500 ML 100 ML IV (09:09)
[2024-09-11] MEDS: SODIUM CHLORIDE 0.9 % (FLUSH) 10 ML SYRINGE IVF (09:09)
[2024-09-11] MEDS: MUPIROCIN 1 GM PACKET 1 APPLIC TOPICAL (10:10)
[2024-09-11] MEDS: COCAINE HCL 4 % 4 ML SOLUTION NOSTRIL-B (10:10)
--- NOTE | 2024-09-11 10:24 | W.PM.ENTPROC ---
Procedure Note Date of procedure: 09/11/24 Procedure: Preop diagnosis is depressed left nasal fracture, lateralization of right nasal bone posttraumatic Postop diagnosis same Procedure closed reduction nasal fracture with internal and external fixation. Under general endotracheal anesthesia patient was prepped and draped usual fashion. The nose was decongested with 2 cocaine pledgets. The lateralized right nasal bone was reduced digitally with thumb pressure. The depressed left fracture was elevated by marking the X fracture line with the elevator externally and then inserting it into the nose and elevating the fracture. Merocel packing coated in Bactroban was placed beneath the fracture lines on both sides. External dressing consisting of benzoin and Steri tape was applied. The patient procedure well was taken recovery satisfactory condition. Blood loss was 0 mL Surgeon: Farhat Aviles MD
--- NOTE | 2024-09-11 10:26 | P.ANES_ITS ---
Anesthesia Charges Start Date/Time Anesthesia Start Date: 09/11/24 Anesthesia Start Time: 10:00 Stop Date/Time Anesthesia Stop Date: 09/11/24 Anesthesia Stop Time: 10:27 Summary Extremes of Age - Over 70 or under 1: SECURITIES CLERK Coding CPT Codes CPT Codes: ANESTH NOSE/SINUS SURGERY - 04805 ([id number]) P2 - PATIENT W/MILD SYST DISEASE, QK - ACCOUNT RESOLUTION EXPERT 2-4 CNCRNT ANES PROC Additional Codes: Summary - Extremes of Age - Over 70 or under 1: SECURITIES CLERK ([id number])
--- NOTE | 2024-09-11 10:26 | W.ANESCHARGE ---
Anesthesia Charges Start Date/Time Anesthesia Start Date: 09/11/24 Anesthesia Start Time: 10:00 Stop Date/Time Anesthesia Stop Date: 09/11/24 Anesthesia Stop Time: 10:27 Summary Extremes of Age - Over 70 or under 1: CONSULTING PRACTICE MANAGER Coding CPT Codes CPT Codes: ANESTH NOSE/SINUS SURGERY - 59159 ([id number]) P2 - PATIENT W/MILD SYST DISEASE, QK - PREPRESS TECHNICIAN 2-4 CNCRNT ANES PROC Additional Codes: Summary - Extremes of Age - Over 70 or under 1: CONSULTING PRACTICE MANAGER ([id number])
--- NOTE | 2024-09-11 10:44 | SUR.PHASEI ---
Patients BP's high 200s/100, RN verbalized to COMPUTATIONAL LINGUIST about high pressures. COMPUTATIONAL LINGUIST giving 5 mg hydralazine
[2024-09-11] MEDS: fentaNYL 100 MCG/2 ML inj 50 MCG IVP (10:50)
--- NOTE | 2024-09-11 10:51 | W.ANESCHARGE ---
Anesthesia Charges Start Date/Time Anesthesia Start Date: 09/11/24 Anesthesia Start Time: 10:00 Stop Date/Time Anesthesia Stop Date: 09/11/24 Anesthesia Stop Time: 10:27 Summary Extremes of Age - Over 70 or under 1: MDA Coding CPT Codes CPT Codes: ANESTH NOSE/SINUS SURGERY - 70549 ([id number]) QK - COAL TRIMMER MACHINE OPERATOR 2-4 CNCRNT ANES PROC, QX - MEDICAL IMAGING TECHNOLOGIST SVC W/ MD MED DIRECTION, P2 - PATIENT W/MILD SYST DISEASE Additional Codes: Summary - Extremes of Age - Over 70 or under 1: MDA ([id number])
--- NOTE | 2024-09-11 10:55 | SUR.PHASEI ---
BOARDMARKER gave 2nd dose of hydralazine
--- NOTE | 2024-09-11 11:13 | SUR.PHASEI ---
After PSYCHOLOGY PHYSICIAN giving 2 doses of hydralazine, BP's are coming down to the 140s/60s.
--- NOTE | 2024-09-11 11:18 | SUR.PHASEI ---
Patient meets ASSISTANT SALES DIRECTOR discharge requirements for PACU.
== END 2024-09-11 13:14 | disposition home or self-care (01) ==
PROVIDERS: PCP Emergency Medicine; Visit Provider Otolaryngology
PROC: 0NSBXZZ Reposition Nasal Bone, External Approach (ICD-10-PCS; CPT 21320; principal; 2024-09-11 09:15)
DX: S02.2XXA Fracture of nasal bones, initial encounter for closed fracture (principal); E11.9 Type 2 diabetes mellitus without complications; I10 Essential (primary) hypertension
CPT/HCPCS: 21320; 00160; 82962; 99100; A9270; J3010; J7030

== ENCOUNTER 2024-11-19 13:14 | Outpatient (CLI) | payer MEDICARE, SELFPAY | END 2024-11-19 13:15 | disposition home or self-care (01) | LOC: LKVREF 13:15 | PROVIDERS: PCP Emergency Medicine; Visit Provider Emergency Medicine | DX: E78.2 Mixed hyperlipidemia (principal); I10 Essential (primary) hypertension | CPT/HCPCS: 80048 ==

== ENCOUNTER 2025-06-02 13:38 | Outpatient (CLI) | payer MEDICARE, SELFPAY | END 2025-06-02 13:39 | disposition home or self-care (01) | PROVIDERS: PCP Physician Assistant Medical; Visit Provider Physician Assistant Medical | DX: E11.9 Type 2 diabetes mellitus without complications (principal); E78.2 Mixed hyperlipidemia; I10 Essential (primary) hypertension; M81.0 Age-related osteoporosis without current pathological fracture | CPT/HCPCS: 80061; 82043; 82306; 82570; 82607 ==

== ENCOUNTER 2025-07-29 15:16 | Outpatient (CLI) | payer MEDICARE, SELFPAY ==
--- NOTE | 2025-07-29 15:30 | CRLHL7_ITS ---
For Patients: As a result of the Century Cures Act, medical imaging exams and procedure reports are released immediately into your electronic medical record. You may view this report before your referring provider. If you have questions, please contact your health care provider. DXA BONE MINERAL DENSITY STUDY Current height (in): 64. Weight (lb): 140. Menopause age: 41. Ethnicity: White. 1. Have you had a previous hip or vertebral fracture? Yes. 2. Have you had any fractures during your adult life which did not result from significant trauma (e.g., auto accident)? Yes. 3. Did either of your parents have a hip fracture? No. 4. Do you smoke? No. 5. Have you ever taken Glucocorticoids? No. 6. Do you have rheumatoid arthritis? Yes. 7. Do you have secondary osteoporosis? No. 8. Do you drink 3 or more alcoholic drinks per day? No. 9. Are you being treated for osteoporosis? No. 10. Have you ever taken any of the following medications: Actonel, Evista, Fosamax, Miacalcin, Reclast, Boniva, Forteo, HRT (i.e. estrogen/hormone therapy), Protelos, Prolia, Vitamin D, Calcium, other ??? please specify. ANSWER: Yes, Vitamin D, and Calcium. 11. Do you have any of the following medical conditions: Anorexia or bulimia, asthma or emphysema, end stage renal disease, hyperparathyroidism, any seizure disorders, cancer, inflammatory bowel diseases, hysterectomy, other ??? please specify. ANSWER: Yes, Hysterectomy. 12. What was your maximum height (inches)? 64. 13. Do you perform weight bearing exercise regularly? No. 14. Do you regularly consume dairy products? Yes. 15. Do you drink caffeinated beverages? Yes. 16. At what age did your period start? 16. 17. Are you premenopausal? No. 18. How many full term pregnancies have you had? 3. 19. Have you ever missed your period for more than 6 months in a row (not including or menopause)? No. TECHNIQUE: Bone mineral density study was performed using the [employer]. FINDINGS: The results of the study expressed as bone mineral density (BMD) are as follows: Lumbar spine L3 to L4: BMD: 1.134 g/cm2. T-score: 0.3. Z-score: 2.9. Neck Left: BMD: 0.541 g/cm2. T-score: -2.8. Z-score: -0.7. Right: BMD: 0.776 g/cm2. T-score: -1.4. Z-score: 0.4. Total IMPRESSION: Osteoporosis. COMPARISON: Compared with scan of 07/02/2025, the bone mineral density has increased by 6.1 percent at the spine and increased by 1.7 percent at the hip. Dimas Loaiza M.D. Diagnostic Radiologist [email or web address] REJI/mark DW/Dictated by: Dimas Loaiza MD @ 07/30/2025 9:52:00 AM (Electronically Signed)
== END 2025-07-29 15:17 | disposition home or self-care (01) ==
LOC: RAD 15:17
PROVIDERS: PCP Physician Assistant Medical; Visit Provider Physician Assistant Medical
DX: M81.0 Age-related osteoporosis without current pathological fracture (principal); M05.79 Rheumatoid arthritis with rheumatoid factor of multiple sites without organ or systems involvement; Z90.711 Acquired absence of uterus with remaining cervical stump
CPT/HCPCS: 77080